=== PATIENT | female | born 1965 | race Caucasian/White ===

== ENCOUNTER 2023-06-07 11:13 | Outpatient (OUT) | payer MEDICAID, SELFPAY ==
--- NOTE | 2023-06-07 11:23 | MM_ITS ---
Patient Name: KASANDRA HARKINS MR#: [id number] : 1965 Exam Date: 06/07/2023 Ordering Doctor: DR RUTH IRAHETA . RADIOLOGY REPORT PROCEDURE: MM TOMOSYNTHESIS SCREENING BI COMPARISON: MG MAMM SCREEN ADAM W CAD, 03/07/2020. MG MAMM RT DIAG FU, 03/25/2020. INDICATIONS: screening Calculator Name NCI Breast Cancer Risk Assessment Tool 5 Year Breast Cancer Risk 1.00% Lifetime Breast Cancer Risk 6.30% Personal Breast Cancer No Personal Ovarian Cancer No Treatments None Family Cancers None LOCATION: [facility] BREAST COMPOSITION: Heterogeneously dense,which may obscure small masses. FINDINGS: DIAGNOSTIC CATEGORY 0--INCOMPLETE: NEED ADDITIONAL IMAGING EVALUATION. Scattered benign-appearing nodules are present. Scattered benign-appearing calcifications are present. Scattered benign-appearing lymph nodes are present. RIGHT BREAST: No significant suspicious finding. Large stable coarse calcification upper outer quadrant, anterior breast LEFT BREAST: 2 focal areas density in the upper outer quadrant, 1 upper-outer quadrant, anterior breast. A 2nd area upper-outer quadrant, mid breast, spot compression imaging and ultrasound follow-up is recommended. RECOMMENDATIONS: ADDITIONAL MAMMOGRAPHIC VIEWS REQUIRED: LEFT BREAST - spot compression ULTRASOUND: LEFT BREAST PLEASE NOTE: A NORMAL MAMMOGRAM DOES NOT EXCLUDE THE POSSIBILITY OF BREAST CANCER. A CLINICALLY SUSPICIOUS PALPABLE LUMP SHOULD BE BIOPSIED. Dictated by: Clarence Stack MD on 06/07/2023 at 11:57 Approved by: Clarence Stack MD on 06/07/2023 at 12:52
== END 2023-06-07 11:14 | disposition home or self-care (01) ==
LOC: MAMMO 11:18
PROVIDERS: PCP Family Medicine; Visit Provider Family Medicine
DX: Z12.31 Encounter for screening mammogram for malignant neoplasm of breast (principal); R92.8 Other abnormal and inconclusive findings on diagnostic imaging of breast
CPT/HCPCS: 77063; 77067

== ENCOUNTER 2023-06-17 13:09 | Outpatient (OUT) | payer MEDICAID, SELFPAY ==
--- NOTE | 2023-06-17 13:15 | MM_ITS ---
Patient Name: KASANDRA HARKINS MR#: [id number] : 1965 Exam Date: 06/17/2023 Ordering Doctor: DR Neto Villanueva . RADIOLOGY REPORT PROCEDURE: MM DIAGNOSTIC MAMMO UNILAT LT, 06/17/2023, 13:16 US BREAST LT LIMITED, 06/17/2023, 12:27 COMPARISON: MM TOMOSYNTHESIS SCREENING BI, 06/07/2023. MG MAMM RT DIAG FU, 03/25/2020. MG MAMM SCREEN ADAM W CAD, 03/07/2020. MG MAMM ADAM SCRN W CAD DIG, 07/17/2013. INDICATIONS: Abnormal Mammogram Calculator Name NCI Breast Cancer Risk Assessment Tool 5 Year Breast Cancer Risk 1.00% Lifetime Breast Cancer Risk 6.30% Personal Breast Cancer No Personal Ovarian Cancer No Treatments None Family Cancers None LOCATION: [facility] BREAST COMPOSITION: Heterogeneously dense,which may obscure small masses. FINDINGS: DIAGNOSTIC CATEGORY 4--SUSPICIOUS FOR MALIGNANCY. FINDING DOES NOT EXHIBIT CLASSIC FINDINGS OF BREAST CANCER: LEFT BREAST: No significant suspicious finding. Lobular masslike area at the 1 o'clock position 1.9 cm from the nipple, 0.6 x 0.6 x 0.5 cm. Heterogeneous, mixed density area at the 12 o'clock position, 2.3 cm from the nipple, 1.8 x 1.8 x 0.7 cm suspected represent residual area of dense fibroglandular tissue. Questionable 7 x 6 x 3 mm area at the 3 o'clock position, 7.3 cm from the nipple, although I suspect this represents normal fibroglandular tissue. Ultrasound-guided biopsy of the 1 o'clock lesion is recommended. Follow-up mammography and left breast ultrasound in 6 months is recommended to follow/document stability of the 12 o'clock and 3 o'clock areas. RECOMMENDATIONS: ULTRASOUND-GUIDED CORE BIOPSY: LEFT BREAST PLEASE NOTE: A NORMAL MAMMOGRAM DOES NOT EXCLUDE THE POSSIBILITY OF BREAST CANCER. A CLINICALLY SUSPICIOUS PALPABLE LUMP SHOULD BE BIOPSIED. Dictated by: Keanu Garner M.D. on 06/17/2023 at 14:08 Approved by: Keanu Garner M.D. on 06/17/2023 at 14:20
--- OUTSIDE RECORDS SUMMARY | 2023-06-17 13:18 | XMS_ITS | CCD ---
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 [Ratio] 13.5 % Normal 11.9-15.3 [facility] Comment on above: Performed By: #### C BC, LIPASE, BMP, HEPATIC #### [address] Hematocrit (Bld) [Volume fraction] 40.2 % Normal 34.0-46.4 [facility] Comment on above: Performed By: #### C BC, LIPASE, BMP, HEPATIC #### [address] Hemoglobin (Bld) [Mass/Vol] 13.0 g/dL Normal 11.8-15.4 [facility] Comment on above: Performed By: #### C BC, LIPASE, BMP, HEPATIC #### [address] Lymphocytes (Bld) [#/Vol] 2.5 10*3/uL Normal 1.00-4.8 [facility] Comment on above: Performed By: #### C BC, LIPASE, BMP, HEPATIC #### [facility] [address] Lymphocytes/100 WBC (Bld) 19.8 % Normal . [facility] Comment on above: Performed By: #### C BC, LIPASE, BMP, HEPATIC #### [facility] [address] MCH (RBC) [Entitic mass] 30.3 pg Normal 24.7-34.3 [facility] Comment on above: Performed By: #### C BC, LIPASE, BMP, HEPATIC #### [facility] [address] MCV (RBC) [Entitic vol] 93.9 fL Normal 80-100 [facility] Comment on above: Performed By: #### C BC, LIPASE, BMP, HEPATIC #### [address] Mean Corpuscular HGB Conc 32.3 g/dL Normal 32.0-35.0 [facility] Comment on above: Performed By: #### C BC, LIPASE, BMP, HEPATIC #### [address] Monocytes (Bld) [#/Vol] 1.0 10*3/uL High 0.0-0.8 [facility] Comment on above: Performed By: #### C BC, LIPASE, BMP, HEPATIC #### [place] [address] [place] Monocytes/100 WBC (Bld) 8.1 % Normal . [facility] Comment on above: Performed By: #### C BC, LIPASE, BMP, HEPATIC #### [facility] [address] [place] [address] [place] Neutrophils (Bld) [#/Vol] 8.8 10*3/uL High 1.8-7.7 [facility] Comment on above: Performed By: #### C BC, LIPASE, BMP, HEPATIC #### [address] Neutrophils/100 WBC (Bld) 70.7 % Normal . [facility] Comment on above: Performed By: #### C BC, LIPASE, BMP, HEPATIC #### [facility] [address] Nucleated RBC/100 WBC (Bld) [Ratio] 0.0 % Normal 0-0.5 [facility] Comment on above: Performed By: #### C BC, LIPASE, BMP, HEPATIC #### [facility] [address] Platelet mean volume (Bld) [Entitic vol] 9.2 fL Normal 6.3-10.7 [facility] Comment on above: Performed By: #### C BC, LIPASE, BMP, HEPATIC #### [address] Platelets (Bld) [#/Vol] 284 10*3/uL Normal 150-450 [facility] Comment on above: Performed By: #### C BC, LIPASE, BMP, HEPATIC #### [address] RBC (Bld) [#/Vol] 4.28 10*6/uL Normal 3.60-5.00 [facility] Comment on above: Performed By: #### C BC, LIPASE, BMP, HEPATIC #### [address] WBC (Bld) [#/Vol] 12.4 10*3/uL High 4.5-11.0 [facility] Comment on above: Performed By: #### C BC, LIPASE, BMP, HEPATIC #### [address] ECG 12 lead ECGon 03-01-2021 ECG 12 lead ECG [facility] [place] [address] [place] [address] Electrocardiograph Report Signed Patient: Kasandra Parkinson MR#: [id number] : 1965 Acct:[id number] Age/Sex: 56 / F ADM Date: 03/01/21 Loc: ER Room: Type: [facility] ER Attending Dr: Ordering Provider: Jose Antonio Black DO Date of Service: 03/01/21 ECG/ECG 12 lead ECG: trauma Copies to: Test Reason : Blood Pressure : 139/064 mmHG Vent. Rate : 077 BPM Atrial Rate : 077 BPM P-R Int : 154 ms QRS Dur : 134 ms QT Int : 432 ms P-R-T Axes : 052 -32 021 degrees QTc Int : 488 ms Normal sinus rhythm complete RBBB q waves III and AVF Confirmed by Jose Antonio Black DO ([id number]) on 03/02/2021 3:27:47 AM Referred By: Electronically Signed By:Jose Antonio Black DO Transcribed By: MUS Signed By Jose Antonio Black DO [id number] Normal [facility] Hepatic Panelon 03-01-2021 Albumin [Mass/Vol] 3.8 g/dL Normal 3.2-5.5 [facility] Comment on above: Performed By: #### C BC, LIPASE, BMP, HEPATIC #### [facility] [address] Albumin/Globulin [Mass ratio] 1.3 {ratio} Normal [facility] Comment on above: Performed By: #### C BC, LIPASE, BMP, HEPATIC #### [facility] [address] [id number] [facility] ALP [Catalytic activity/Vol] 87 U/L Normal 32-92 [facility] Comment on above: Performed By: #### C BC, LIPASE, BMP, HEPATIC #### [facility] [address] [phone] [place] ALT [Catalytic activity/Vol] 19 U/L Normal 10-60 [facility] Comment on above: Performed By: #### C BC, LIPASE, BMP, HEPATIC #### [facility] [address] [phone] [place] AST [Catalytic activity/Vol] 28 U/L Normal 10- [facility] Comment on above: Performed By: #### C BC, LIPASE, BMP, HEPATIC #### [facility] [address] [phone] [place] Bilirubin [Mass/Vol] 0.3 mg/dL Normal 0.3-1.2 [facility] Comment on above: Performed By: #### C BC, LIPASE, BMP, HEPATIC #### [facility] [address] Bilirubin,Indirect Not performed Normal [facility] Comment on above: Performed By: #### C BC, LIPASE, BMP, HEPATIC #### [facility] [address] Bilirubin.indirect [Mass/Vol] mg/dL Normal 0.0-0.4 [facility] Comment on above: Performed By: #### C BC, LIPASE, BMP, HEPATIC #### [facility] [address] Globulin (S) [Mass/Vol] 2.9 g/dL Normal [facility] Comment on above: Performed By: #### C BC, LIPASE, BMP, HEPATIC #### [facility] [address] Protein [Mass/Vol] 6.7 g/dL Normal 6.1-7.9 [facility] Comment on above: Performed By: #### C BC, LIPASE, BMP, HEPATIC #### [address] Lipaseon 03-01-2021 Lipase [Catalytic activity/Vol] 36.0 U/L Normal 22-51 [facility] Comment on above: Result Comment: PERF ORMED BY: [place] [address] PATHOLOGIST SENIOR PLANNING ANALYST CHERYLE BUI M.D. Performed By: #### C BC, LIPASE, BMP, HEPATIC #### [facility] [address] [place] [address] Jigna Ag Negativeon 03-01-20 Jigna Ag Negative Negative Normal Negative [facility] Comment on above: Result Comment: This is a duplicate Jigna SARS Antigen (YARON) result to be used for statistical tracking purpose only. PERFORMED BY: [place] [address] PATHOLOGIST SENIOR PLANNING ANALYST CHERYLE BUI M.D. Performed By: #### S OFIANEG, COVID 19 [facility], COVID-19 JGINA #### [facility] [address] [place] [address] [place] Type and Screenon 03-01-2021 ABO and Rh group Nom (Bld) Blood group O Rh(D) positive Normal [facility] Comment on above: Result Comment: PERF ORMED BY: [facility] [address] [place] [address] PATHOLOGIST SENIOR PLANNING ANALYST CHERYLE BUI M.D. Adrenocorticotropic Hormoneo n 09-17-2018 Adrenocorticotropic Hormone 17 pg/mL Normal 6-58 [facility] Comment on above: Result Comment: INTE RPRETIVE INFORMATION: Adrenocorticotropic Hormone Some types of synthetic ACTH are not detected by this assay. Access complete set of age- and/or gender-specific reference intervals for this test in the [facility] ([employer]). Performed by [facility], [address] [facility] [place] [id number] [email or web address], Rolando Graves MD - Lab. Director IGF-1 (Insulin-Like Growth F actor I)on 09-17-2018 IGF-1 (Insulin-Like Growth 1) 162 ng/mL Normal 53-234 [facility] IGF-1 Z SCORE CALC 0.8 Normal [facility] Comment on above: Result Comment: INTE RPRETIVE INFORMATION: IGF 1 Z-SCORE CALCULATION A Z score is the number of standard deviations a given result is above (positive score) or below (negative score) the age- and sex-adjusted population mean. Results that are within the IGF-1 reference interval will have a Z score between -2.0 and +2.0. Performed by [facility], [address] [facility] [place] [id number] [email or web address], Rolando Graves MD - Lab. Director Growth Hormoneon 09-16-2018 Growth Hormone 0.06 ng/mL Normal 0.05-8.00 [facility] Comment on above: Result Comment: Perf ormed by [facility], [address] [facility] [place] [id number] [email or web address], Rolando Graves MD - Lab. Director Basic Metabolic Panelon 05 Anion gap molar conc 13 mmol/L Normal 9-15 [facility] Comment on above: Performed By: #### B MP #### [facility] [address] [place] [address] Calcium mass conc 9.4 mg/dL Normal 8.5-9.9 [facility] Comment on above: Performed By: #### B MP #### [facility] [address] [place] [address] Chloride molar conc 100 mmol/L Normal 95-107 [facility] Comment on above: Performed By: #### B MP #### [facility] [address] [place] [address] CO2 molar conc 26 mmol/L Normal 20-31 [facility] Comment on above: Performed By: #### B MP #### [facility] [address] [place] [address] Creatinine mass conc 0.83 mg/dL Normal 0.50-0.90 [facility] Comment on above: Performed By: #### B MP #### [facility] [address] [place] [address] GFR/1.73 sq M predicted among blacks MDRD vol rate/area (S/P/Bld) mL/min/{1.73_m2} Normal >60 [facility] Comment on above: Result Comment: >60 mL/min/1.73m2 EGFR, calc. for ages 18 and older using the MDRD formula (not corrected for weight), is valid for stable renal function. Performed By: #### B MP #### [facility] [address] [place] [address] GFR/1.73 sq M.predicted MDRD vol rate/area mL/min/{1.73_m2} Normal >60 [facility] Comment on above: Result Comment: >60 mL/min/1.73m2 EGFR, calc. for ages 18 and older using the MDRD formula (not corrected for weight), is valid for stable renal function. Performed By: #### B MP #### [facility] [address] [place] [address] Glucose mass conc 93 mg/dL Normal 70-99 [facility] Comment on above: Performed By: #### B MP #### [facility] [address] [place] [address] Potassium molar conc 3.7 mmol/L Normal 3.4-4.9 [facility] Comment on above: Performed By: #### B MP #### [facility] [address] [place] [address] Sodium molar conc 139 mmol/L Normal 135-144 [facility] Comment on above: Performed By: #### B MP #### [facility] [address] [place] [address] Urea nitrogen mass conc 15 mg/dL Normal 6-20 [facility] Comment on above: Performed By: #### B MP #### [facility] [address] [place] [address] CBC With Platelet No Differe ntialon 09-14-2018 Erythrocyte distribution width Ratio (RBC) 13.9 % Normal 11.5-14.5 [facility] Comment on above: Performed By: #### C BCND #### [facility] [address] [place] [address] Hematocrit Volume Fraction (Bld) 39.0 % Normal 37.0-47.0 [facility] Comment on above: Performed By: #### C BCND #### [facility] [address] [place] [address] Hemoglobin mass conc (Bld) 12.9 g/dL Normal 12.0-16.0 [facility] Comment on above: Performed By: #### C BCND #### [facility] [address] [place] [address] MCH Entitic mass (RBC) 31.4 pg Critically high 27.0-31. 3 [facility] Comment on above: Performed By: #### C BCND #### [facility] [address] [place] [address] MCHC mass conc (RBC) 33.0 % Normal 33.0-37.0 [facility] Comment on above: Performed By: #### C BCND #### [facility] [address] [place] [address] MCV Entitic volume (RBC) 95.3 fL Normal 82.0-100.0 [facility] Comment on above: Performed By: #### C BCND #### [facility] [address] [place] [address] Platelets #/vol (Bld) 304 10*3/uL Normal 130-400 [facility] Comment on above: Performed By: #### C BCND #### [facility] [address] [place] [address] RBC #/vol (Bld) 4.09 10*6/uL Low 4.20-5.40 [facility] Comment on above: Performed By: #### C BCND #### [facility] [address] [place] [address] WBC #/vol (Bld) 8.1 10*3/uL Normal 4.8-10.8 [facility] Comment on above: Performed By: #### C BCND #### [facility] [address] [place] [address] Cortisolon 09-14-2018 Cortisol 9.9 ug/dL Normal [facility] Comment on above: Result Comment: Refe rence Ranges: AM Specimen 6.2-19.4 ug/dL PM Specimen 2.3-11.9 ug/dL Performed By: #### C ORT #### [facility] [address] [place] [address] Prolactinon 09-14-2018 Protein mass conc 40.2 ng/mL Normal [facility] Comment on above: Result Comment: Defa ult Normal Ranges Female Male Non: 4.8-23.3 4.0-15.2 Performed By: #### P ROOPA #### [facility] [address] [place] [address] TSH w/out Reflexon 9 Thyrotropin Qn 2.230 uIU/mL Normal 0.440-3.86 [facility] Comment on above: Performed By: #### T SH #### [facility] [address] [place] [address] Thyroxine Freeon 09-14-2018 Thyroxine Free 0.82 ng/dL Low 0.84-1.68 [facility] Comment on above: Performed By: #### F RT4 #### [facility] [address] [place] [address] Encounters Encounter Date Encounter Type Care Provider Facility Start: 08-23-2022 Encounter for genera l adult medical examination without abnormal findings DR RUTH IRAHETA . [facility] Start: 08-17-2022 End: 08-18-[address] RUTH IRAHETA . Facility: Start: 08-17-2022 End: 08-18-2022 Encounter for general adult medical examination without abnormal findings DR RUTH IRAHETA . Facility: Start: 08-10-2022 Letter encounter Ignacia Doshi MD Work Phone: [facility] Start: 05-12-2022 Letter encounter Ignacia Doshi MD Work Phone: [facility] Start: 03-18-2022 ambulatory IGNACIA DOSHI [facility] Start: 02-26-2022 Admission to [facility] surgery langdon Jose Keita PA-C Work Phone: [facility] Start: 02-17-2022 Letter encounter Ignacia Doshi MD Work Phone: [facility] Start: 02-17-2022 End: 02-18-2022 ambulatory UNKNOWN PROVIDER Facility:[facility] Start: 02-17-2022 End: 02-17-2022 Office outpatient visit 15 minutes Ignacia Doshi MD Work Phone: [facility] Comment on above: Right ankle pain, un specified chronicity (Primary Dx) Start: 02-17-2022 End: 02-17-2022 Subsequent hospital visit by physician Op Xray 2 [facility] Comment on above: Right ankle pain, un specified chronicity; Closed displaced comminuted fracture of shaft of left radius with routine healing, subsequent encounter Start: 09-02-2021 Letter encounter Ignacia Doshi MD Work Phone: [facility] Start: 09-02-2021 End: 09-03-2021 ambulatory IGNACIA DOSHI Facility:[facility] Start: 09-02-2021 End: 09-02-2021 Office outpatient visit 15 minutes Oneida Santos [employer] Work Phone: [facility] Comment on above: Closed displaced com minuted fracture of shaft of left radius with routine healing, subsequent encounter (Primary Dx) Start: 09-02-2021 End: 09-02-2021 Office outpatient visit 10 minutes Jose MENDOZA-Hojoki Work Phone: [facility] Comment on above: Right ankle pain, un specified chronicity (Primary Dx) Start: 09-01-2021 Letter encounter Ignacia Doshi MD Work Phone: [facility] Procedures Date Procedure Procedure Detail Performing Clinician Start: 02-17-2022 End: 02-17-2022 Radex forearm 2 views Oneida MENDOZA -Hojoki Work Phone: Start: 03-01-2021 Antibody screen Comment on above: Result Comment: PERF ORMED BY: [facility] [address] [place] [address] PATHOLOGIST SENIOR PLANNING ANALYST CHERYLE BUI M.D. Plan of Treatment Date Care Activity Detail Author Start: 03-01-2031 Tetanus vaccination [facility] Start: 07-26-2026 Cholesterol [Mass/volume] in Serum or Plasma Cholesterol [facility] Start: 07-07-2022 End: 07-07-2022 Patient encounter procedure 07/07/2022 Office Visit Orthopedics Ignacia Doshi MD [address] [place] [id number] [facility] Start: 06-26-2022 End: 06-26-2022 Admission to same day surgery center 06/26/2022 Surgery General Surgery Ignacia Doshi MD [address] [place] [id number] REMOVAL, HARDWARE, ANKLE [facility] Comment on above: REMOVAL, HARDWARE, A NKLE Start: 06-26-2022 End: 06-26-2022 REMOVAL, HARDWARE, ANKLE REMOVAL, HARDWARE, ANKLE Routine scheduled Type III open displaced trimalleolar fracture of right ankle, initial encounter 06/26/2022 1:25 PM EST [facility] Start: 06-26-2022 Subsequent hospital visit by physician 06/26/2022 Hospital Encounter General Surgery Ignacia Doshi MD [address] [place] [id number] [facility] Start: 06-12-2022 End: 06-12-2022 Patient encounter procedure 06/12/2022 Office Visit Presurgical Evaluation Zoey Corrales, BODY SHOP MANAGER-INTERIOR BLOCK WIRER [address] [place] [id number] [facility] Pre Surgical Evaluation Start: 03-10-2022 End: 03-10-2022 Patient encounter procedure [facility] Start: 03-05-2022 End: 09-02-2022 Radex forearm 2 views XR FOREARM LEFT 2 VIEWS Imaging After office visit Closed displaced comminuted fracture of shaft of left radius with routine healing, subsequent encounter Expected: 03/05/2022 (Approximate), Expires: 09/02/2022 [employer] Work Phone: Comment on above: Expected: 03/05/2022 (Approximate), Expires: 09/02/2022 Start: 03-03-2022 Basic metabolic 2000 panel - Serum or Plasma Basic Metabolic Panel [facility] Start: 01-31-2022 Influenza vaccination Influenza Vacc ine (#1) [facility] Start: 12-02-2021 End: 12-02-2021 Patient encounter procedure 12/02/2021 Office Visit Orthopedics Ignacia Doshi MD [address] [place], [place] [id number] [facility] Start: 09-02-2021 End: 09-02-2021 Patient encounter procedure [facility] Comment on above: Right ankle pain, un specified chronicity (Primary Dx) Start: 02-04-2016 Measurement of occul t blood in single stool specimen [facility] Start: 02-04-2016 Screening for malignant neoplasm of breast [facility] Start: 02-04-2016 Screening for malignant neoplasm of colon CRC Screening [facility] Start: 02-04-2016 Shingles (RZV) Vacci ne (1 of 2) Shingles (RZV) Vaccine (1 of 2) [facility] Start: 2011 Cholesterol [Mass/volume] in Serum or Plasma Cholesterol [facility] Start: 2011 Screening for malignant neoplasm of colon [facility] Start: 2006 Screening for malignant neoplasm of breast [facility]ammography [facility] Start: 1987 Screening for malignant neoplasm of cervix Pap Smear [facility] Start: 02-04-1984 Hepatitis C screening Hepatitis C An tibody [facility] Start: 1981 HIV screening HIV Test [facility] Start: 1971 COVID-19 Vaccine (1) COVID-19 Vaccin e (1) [facility] Start: 1966 COVID-19 Vaccine (#1) COVID-19 Vacci ne (#1) [facility] Start: 1966 Screening for malignant neoplasm of colon Colonoscopy [facility] REMOVAL, HARDWARE, ANKLE REMOVAL, HARDWARE, ANKLE Routine scheduled Type III open displaced trimalleolar fracture of right ankle, initial encounter [facility] Immunizations Immunization Date Immunization Notes Care Provider Fa cility 03-01-2021 tetanus toxoid, redu jennifer diphtheria toxoid, and acellular pertussis vaccine, adsorbed Ignacia Doshi MD Work Phone: [facility] 04-08-2012 tetanus toxoid, redu jennifer diphtheria toxoid, and acellular pertussis vaccine, adsorbed Ignacia Doshi MD Work Phone: [facility] 04-06-2012 hepatitis B vaccine, adult dosage Ignacia Doshi MD Work Phone: [facility] Payers Date Payer Category Payer Medicaid [id number] 2022 Medicaid [id number] 2020 Medicaid [id number] 2020 Medicaid [id number] 1965 Unknown [id number] 2.16. [id number] 1965 Unknown [id number] 2.16. [id number] 1965 Unknown [id number] 2.16. [id number] 1966 Unknown [id number] 2.16. [id number] 1966 Unknown [id number] 2.16. [id number] 1965 Unknown [id number] 2.16. [id number] 1966 Unknown [id number] 2.16. [id number] 1965 Unknown [id number] 2.16. [id number] 1965 Unknown [id number] 2.16.84 [id number] Social History Date Type Detail Facility Start: 03-02-2021 Tobacco smoking status [facility] Ex-smoke r [facility] End: 03-02-2009 History of tobacco use [facility] End: 03-02-2009 History of tobacco use [facility] Start: 03-02-2021 Cigarettes smoked cu rrent (pack per day) - Reported 0.25 [facility] Start: 03-02-2021 Tobacco use and exposure Forme r smokeless tobacco user [facility] Start: 1965 Sex Assigned At Not on file M [facility] Medical Equipment Procedure Code Equipment Code Equipment Origin al Text Equipment Identifier Dates Plate 3.5mm 8hol e 97mm Ea1 241.381 - [id number] Start: 03-02-2021 Screw 3.5 X 45mm Self-Tapping Ea1 204.845 - [id number] Start: 03-02-2021 History of Present illness Narrative 02-17-2022 Ignacia Dsohi MD - 02/17/2022 2:33 PM Dasia Russo RN - 02/17/2022 10:00 AM EDT Note Date & Type Note Facility 02-17-2022 History of Presen t illness Narrative Images from the original note were not included. [facility] Orthopaedic Trauma / Adult Reconstruction Follow up visit Kasandra Parkinson Date: 02/17/22 Post-op: 03/02/2021 - Irrigation And Debridement; Ankle - Right, Reduction, Open, Ankle, and Reduction, Open, Radius Interval History: Doing well overall. Bothered by prominence over lateral ankle and medial malleolus Pain scale: Pain Score: 5/10 Tobacco history: Social History Tobacco Use Smoking Status Former Packs/day: 0.25 Years: 1.00 Pack years: 0.25 Types: Cigarettes Quit date: 03/02/2009 Years since quittin.9 Smokeless Tobacco Former Estimated body mass index is 29.23 kg/m as calculated from the following: Height as of 03/02/21: 5' 3 (1.6 m). Weight as of 03/02/21: 165 lb (74.8 kg). Past medical history, medications, allergies, surgical history and review of systems are reviewed and otherwise unchanged when compared to last visit: Most recent visit in Orthopedics was on 02/17/2022 with Ignacia Doshi MD Examination: Constitutional: Oriented to person, place, and time. Appears well-developed and well-nourished. Head: Normocephalic and atraumatic. Eyes: Pupils are equal, round, and reactive to light. Cardiovascular: Intact distal pulses. Pulmonary/Chest/Breast: Effort normal. No respiratory distress. Neurological: Alert and oriented to person, place, and time. Skin: Skin is warm and dry. Psychiatric: normal mood and affect. Behavior is normal. Musculoskeletal: RLE Deformity: prominent syndesmotic screw Swelling: none Skin changes: none Wounds: healed lateral wound, medial traumatic wound Perfusion: warm, perfused Tenderness: minimal Range of motion: 0-40 Strength: full Sensibility: intact all n Provacative maneuvers: none Personal Interpretation of Diagnostic studies: Study: XR R ankle Date: 02/17/22 Results: healed bimalleolar ankle fx with lucency around syndesmotic screw. Minimal backout of syndesmotic screw. Impression: healed R ankle fx with slight backout of syndesmotic screw In Office Procedures Performed: none Plan: HW removal of only syndesmotic screw and medial malleolar screw at the patient's convenience. Follow up date: tbd Follow up imaging: none Ignacia Doshi MD [facility] Department of Orthopaedic Surgery - Trauma / Adult Reconstruction Patient was identified by name and date of . Dasia Gonzalez RN Patient at risk for falls:No Falls Risk protocol implemented: No documented in this encounter [facility] History of Present illness Narrative 09-02-2021 Jose Keita PA-C - 09/02/2021 6:29 PM Dasia Russo RN - 09/02/2021 10:48 AM EDT Note Date & Type Note Facility 09-02-2021 History of Presen t illness Narrative [facility] Orthopaedic Trauma/Adult Reconstruction 09/02/21 Orthopaedic Surgery Clinic Note HPI: Kasandra Parkinson ([id number]) is a 56 year old female who presents for a visit for follow up s/p ORIF right open bimalleolar ankle fracture. Overall she has been doing well ambulating in a regular shoe. She has some newer onset of hardware pain over the syndesmotic screw that is painful when shoe wear rubs. There is also area of swelling over lateral lower leg at mid/distal fibula. ROS: All other pertinent ROS negative. Medications: Current Outpatient Medications on File Prior to Visit Medication Sig Dispense Refill docusate sodium (COLACE) 100 MG capsule Take 1 Capsule by mouth 2 times daily as needed for Constipation for up to 7 days. 14 Capsule 0 enoxaparin (LOVENOX) 40 mg/0.4 mL injection Inject 0.4 mL under the skin 2 times daily. 33.6 mL 0 senna (SENOKOT) 8.6 MG tablet Take 1 Tablet by mouth daily as needed for Constipation. (Patient not taking: Reported on 05/27/2021) 14 Tablet 0 irbesartan (AVAPRO) 150 MG tablet Take 150 mg by mouth daily. hydrALAZINE (APRESOLINE) 50 MG tablet Take 50 mg by mouth 2 times daily. citalopram (CeleXA) 40 MG tablet Take 40 mg by mouth daily. simvastatin (ZOCOR) 20 MG tablet Take 20 mg by mouth every evening. levothyroxine (SYNTHROID) 25 MCG tablet Take 25 mcg by mouth daily. No current facility-administered medications on file prior to visit. Allergies: Allergies Allergen Reactions Latex Morphine Liquid Past Medical History: Past Medical History: Diagnosis Date Anxiety 2009 Chronic pain artritis, headaches Hypertension Past Surgical History: Past Surgical History: Procedure Laterality Date CHOLECYSTECTOMY IRRIGATION AND DEBRIDEMENT Right 03/02/2021 Procedure: IRRIGATION AND DEBRIDEMENT; ANKLE; Surgeon: Ignacia Doshi MD; Location: PERIOPERATIVE SERVICES; Service: Orthopaedics REDUCTION, OPEN, ANKLE 03/02/2021 Procedure: REDUCTION, OPEN, ANKLE; Surgeon: Ignacia Doshi MD; Location: PERIOPERATIVE SERVICES; Service: Orthopaedics REDUCTION, OPEN, RADIUS 03/02/2021 Procedure: REDUCTION, OPEN, RADIUS; Surgeon: Reid Barr MD; Location: PERIOPERATIVE SERVICES; Service: Hand TOTAL ABDOMINAL HYSTERECTOMY W/WO REMOVAL TUBE(S)/OVARY(S) Social History: Tobacco: Quit Packs: .25 Years: 1 Other types: Cigarettes Quit Date: 03/02/2009 Physical Exam: General: Oriented to person, place, and time. Appears well-developed and well-nourished. Neurological: CN II-XII grossly intact. Head: Normocephalic and atraumatic. Eyes: Pupils are equal, round, and reactive to light. Cardiovascular: Intact distal pulses. Pulmonary: Effort normal. No respiratory distress. Skin: Skin is warm dry, intact. Psychiatric: normal mood and affect. Behavior is normal. Musculoskeletal: RLE Deformity: none Swelling: mild, swelling at midshaft fibula which does not correlate with fracture location Wounds: healed Perfusion: warm, well perfused, distal pulses palpable Tenderness: lateral ankle over distal fibula, some prominence of syndesmotic screw Range of Motion: df 0, pf 40 DF/PF/EHL: 5/5 Sensation: Intact to light touch Imaging: Reviewed with the patient. Fracture appears healed. Slight loosening/backing out of syndesmotic screw In office procedures performed: none Assessment/Plan: 1. (M25.571) Right ankle pain, unspecified chronicity The natural history and treatment options (surgical and non-surgical) were discussed including risks, benefits, alternatives and prognosis and all questions were answered. The following plan was agreed upon: She will continue to observe for this hardware pain/prominence. I explained DOMINIC of this screw if it is persistently painful or causes skin compromise which would necessitate more emergent follow up. Follow-up: 3 months, or sooner if needed, will consider removal of screw based on symptoms. Imaging: right ankle Jose Keita PA-C Patient was identified by name and date of . Dasia Gonzalez RN Patient at risk for falls:No Falls Risk protocol implemented: No documented in this encounter [facility] History of Present illness Narrative 09-02-2021 Oneida Santos PA-C - 09/02/2021 1:26 PM Renetta Milligan RN - 09/02/2021 11:20 AM EDT Note Date & Type Note Facility 09-02-2021 History of Presen t illness Narrative Images from the original note were not included. Post Operative Visit Date of Surgery: 03/02/2021 Surgery(s) performed: 1. Left radial shaft ORIF 2. Closed reduction of distal radial ulnar joint Surgeon: Reid Barr M.D. Pain (0-10): Pain Score: 0/10 Other Complaints: Patient continues to improve. She has been using her wrist as tolerated. Minimal pain. She sometimes feels ulnar sided snapping but infrequently. Wound: Clean and dry without signs or symptoms of infection. Well healed. Edema: None. Motion: Wrist ROM improved. Radiograph Findings: Well healed radial shaft fracture with no change in alignment or signs of hardware failure. Plan: - X-ray images reviewed with patient. - Continue OT per protocol. - WBAT. - Scar massage encouraged. - Tylenol if needed for pain. X-rays on follow up: Yes - Ordered today. Follow up: 6 months. Diagnosis and treatment plan discussed with the patient. The patient stated understanding and agreement. Oneida Santos PA-C 09/02/21 1:26 PM Patient at risk for falls:No Falls Risk protocol implemented: No documented in this encounter [facility] Evaluation note Note Date & Type Note Facility Evaluation note Diagnosis Closed displaced comminuted fracture of shaft of left radius with routine healing, subsequent encounter- Primary documented in this encounter [facility] Evaluation note Note Date & Type Note Facility Evaluation note Diagnosis Right ankle pain, unspecified chronicity- Primary Right ankle pain, unspecified chronicity Closed displaced comminuted fracture of shaft of left radius with routine healing, subsequent encounter documented in this encounter [facility] Evaluation note Note Date & Type Note Facility Evaluation note Diagnosis Right ankle pain, unspecified chronicity- Primary Right ankle pain, unspecified chronicity Closed displaced comminuted fracture of shaft of left radius with routine healing, subsequent encounter documented in this encounter [facility] Evaluation note Note Date & Type Note Facility Evaluation note Diagnosis Right ankle pain, unspecified chronicity Closed displaced comminuted fracture of shaft of left radius with routine healing, subsequent encounter documented in this encounter [facility] Evaluation note Note Date & Type Note Facility Evaluation note Diagnosis Type III open displaced trimalleolar fracture of right ankle, initial encounter- Primary documented in this encounter [facility] Summary Purpose Family History No Family History Records FoundNo Family History Records FoundNo Family History Records FoundNo Family History Records FoundNo Family History Records Found Advance Directives No Advanced Directives Records FoundLatest Code Status on File Code Status Date Activated Date Inactivated Comments Full Code 03/02/2021 6:58 AM 03/04/2021 6:50 PM Documentation of decision pr ocess for this code status: Discussed with patient or surrogate. Thi s is the code status chosen by the patient/surrogate. Latest Code Status on File Code Status Date Activated Date Inactivated Comments Full Code 03/02/2021 6:58 AM 03/04/2021 6:50 PM Latest Code Status on File Code Status Date Activated Date Inactivated Comments Full Code 03/02/2021 6:58 AM 03/04/2021 6:50 PM Question Answer Comments Documentation of decision process for this code status: Discussed with patient or surrogate. This is the code status chosen by the patient/surrogate. Reason for Referral Specialty Diagnoses / Procedures Referred By Contac t Referred To Contact Radiology Diagnoses Closed displaced comminuted fracture of shaft of left radius with routine healing, subsequent encounter Procedures XR FOREARM LEFT 2 VIEWS Oneida Santos PA-C [address] [place] [address] [facility] [address] [place] [address] [place] [address] Referral ID Status Reason Start Date Expiration Date V isits Requested Visits Authorized [id number] Authorized 03/05/2022 09/02/2022 1 1 Specialty Diagnoses / Procedures Referred By Contac t Referred To Contact Radiology Diagnoses Right ankle pain, unspecified chronicity Procedures XR ANKLE RIGHT 3 VIEWS Ignacia Doshi MD [address] [place] [address] [facility] [address] [place] [address] [place] [address] Referral ID Status Reason Start Date Expiration Date Visits Re quested Visits Authorized [id number] Closed 09/02/2021 08/26/2022 1 1 Referral ID Status Reason Start Date Expiration Date Visits Re quested Visits Authorized [id number] Closed 02/17/2022 02/17/2023 1 1 Referral ID Status Reason Start Date Expiration Date Visits Re quested Visits Authorized [id number] Closed 03/05/2022 09/02/2022 1 1 Additional Source Comments INFORMATION SOURCE (unrecogn ized section and content) DATE CREATED AUTHOR 09/24/2018 [facility] DATE CREATED AUTHOR AUTHOR'S ORGANIZ ATION 05/27/2021 [facility] DATE CREATED AUTHOR AUTHOR'S ORGANIZ ATION 06/18/2022 [facility] DATE CREATED AUTHOR AUTHOR'S ORGANIZ ATION 08/23/2022 [facility] DATE CREATED AUTHOR AUTHOR'S ORGANIZ ATION 02/27/2023 Clement Montague [facility] Care Teams (unrecognized sec tion and content) [employer] Supervisor Relationship Specialty Start Date End Date Ignacia Doshi MD [address] [place] [address] Physician Orthopaedic Surgery 05/03/21 Nosdanika, Jose De Jesusi, OTR/L [address] [place] [address] [place] [address] Occupational Therapist Occupational Therapy 05/03/21 [employer] Supervisor Relationship Specialty Start Date End Date Ignacia Doshi MD [address] [place] [address] Physician Orthopaedic Surgery 05/03/21 NosJose De Jesus garnicai, OTR/L [address] [place] [address] [place] [address] Occupational Therapist Occupational Therapy 05/03/21 [employer] Supervisor Relationship Specialty Start Date End Date Ignacia Doshi MD [address] [place] [address] Physician Orthopaedic Surgery 05/03/21 NosJose De Jesus garnicai, OTR/L [address] [place] [address] [place] [address] Occupational Therapist Occupational Therapy 05/03/21 Cupola Melting Supervisor Relationship Specialty Start Date End Date Ignacia Doshi MD [address] [place] [address] Physician Orthopaedic Surgery 05/03/21 Nosin, Cori, OTR/L [address] [place] [address] [place] [address] Occupational Therapist Occupational Therapy 05/03/21 Cupola Melting Supervisor Relationship Specialty Start Date End Date Ignacia Doshi MD [address] [place] [address] Physician Orthopaedic Surgery 05/03/21 Nosin, Cori, OTR/L [address] [place] [address] [place] [id number] Occupational Therapist Occupational Therapy 05/03/21 Cupola Melting Supervisor Relationship Specialty Start Date End Date Ignacia Doshi MD [address] [place] [address] Physician Orthopaedic Surgery 05/03/21 Nosin, Cori, OTR/L [address] [place] [address] [place] [address] Occupational Therapist Occupational Therapy 05/03/21 Cupola Melting Supervisor Relationship Specialty Start Date End Date Ignacia Doshi MD [address] [place], [place] [id number] Physician Orthopaedic Surgery 05/03/21 Nosin, Cori, OTR/L [address] [place] [address] [place] [address] Occupational Therapist Occupational Therapy 05/03/21 Reason for Visit (unrecogniz ed section and content) Reason Comments Monitoring/follow-up Reason Comments Post Op Check Specialty Diagnoses / Procedures Referred By Contac t Referred To Contact Radiology Diagnoses Right ankle pain, unspecified chronicity Procedures XR ANKLE RIGHT 3 VIEWS Ignacia Doshi MD [address] [place], [place] [id number] S DIAGNOSTIC RADIOLOGY [address] [place] [address] [place] [address] Referral ID Status Reason Start Date Expiration Date Visits Re quested Visits Authorized [id number] Closed 02/17/2022 02/17/2023 1 1 FOR RECORDS PERTAINING TO PATIENTS WHO ARE OR HAVE BEEN ENROLLED IN A CHEMICAL DEPENDENCY/SUBSTANCEABUSE PROGRAM, SOME INFORMATION MAY BE OMITTED. This clinical summary was aggregated from multiple sources. Caution should be exercised in using it in the provision of clinical care. This summary normalizes information from multiple sources, and as a consequence, information in this document may materially change the coding, format and clinical context of patient data. In addition, data may be omitted in some cases. CLINICAL DECISIONS SHOULD BE BASED ON THE PRIMARY CLINICAL RECORDS. [employer] [facility]. provides no warranty or guarantee of the accuracy or completeness of information in this document.
== END 2023-06-17 13:10 | disposition home or self-care (01) ==
LOC: MAMMO 13:09
PROVIDERS: PCP Family Medicine; Visit Provider Family Medicine
DX: R92.8 Other abnormal and inconclusive findings on diagnostic imaging of breast (principal)
CPT/HCPCS: 76642; 77065

== ENCOUNTER 2023-06-24 09:51 | Day surgery (SDC) | payer MEDICAID, SELFPAY ==
--- NOTE | 2023-06-24 09:58 | US_ITS ---
The [address] [address] Patient Name: KASANDRA HARKINS MRN: [id number] date: 1965 Sex: F Assigned Patient Location: US Current Patient Location: [place] Accession/Order Number: [id number] Exam Date: 06/24/2023 10:30 Report Date: 06/24/2023 11:39 At the request of: RUTH IRAHETA Procedure: US breast vac bx w/ clip LT EXAM: US breast vac bx w/ clip LT HISTORY: mass ; left breast 1:00 lesion COMPARISON: Ultrasound breast left 06/17/2023 TECHNIQUE: After obtaining informed consent, ultrasound-guided biopsy was performed in the usual sterile manner. The location of the biopsy was then marked as indicated below. FINDINGS: Specimen #, Location: 3 core samples; 1:00 mixed density lobular 9 mm lesion. Biopsy Needle: 13 gauge vacuum core biopsy needle. Marker(s): A single metallic marker was placed in the appropriate targeted location. Medication: Buffered 1% Lidocaine with epinephrine administered locally. Complications: None. Pathology: Pending. US/US breast vac bx w/ clip LT IMPRESSION: 1. Uneventful ultrasound-guided breast biopsy. 2. Pathology results are pending. An addendum to this report will be provided after pathology results are available. Electronically authenticated by: KATE RANDHAWA Date: 06/24/2023 11:39
--- NOTE | 2023-06-24 09:59 | MM_ITS ---
Patient Name: KASANDRA HARKINS MR#: [id number] : 1965 Exam Date: 06/24/2023 Ordering Doctor: DR Neto Villanueva . This report includes an Addendum and supersedes previous reports for this exam. RADIOLOGY REPORT PROCEDURE: MM POST BIOPSY LT COMPARISON: US BREAST VAC BX W/ CLIP LT, 06/24/2023. MM DIAGNOSTIC MAMMO UNILAT LT, 06/17/2023. MM TOMOSYNTHESIS SCREENING BI, 06/07/2023. MG MAMM RT DIAG FU, 03/25/2020. MG MAMM SCREEN ADAM W CAD, 03/07/2020. INDICATIONS: mass BREAST COMPOSITION: Heterogeneously dense,which may obscure small masses. FINDINGS: BIOPSY MARKER: A metallic marker has been placed in the targeted location within the upper-outer quadrant of the left breast. BREAST FINDINGS: Expected post biopsy findings. RECOMMENDATIONS: Dictated by: Keanu Garner M.D. on 06/24/2023 at 15:47 Approved by: Keanu Garner M.D. on 06/24/2023 at 15:49 ADDENDUM: FINDINGS: DIAGNOSTIC CATEGORY 3--PROBABLY BENIGN FINDING. THE FOLLOWING FINDING(S) HAS A HIGH PROBABILITY OF A BENIGN ETIOLOGY: RECOMMENDATIONS: SHORT TERM FOLLOW-UP DIAGNOSTIC MAMMOGRAM LEFT BREAST IN 6 MONTHS. Dictated by: Keanu Garner M.D. on 07/09/2023 at 08:36 Approved by: Keanu Garner M.D. on 07/09/2023 at 08:37
[2023-06-24 10:05] VITALS: BP 164/95; PULSE 67; O2SAT 96
--- OUTSIDE RECORDS SUMMARY | 2023-06-24 10:11 | XMS_ITS | CCD ---
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 03-01-2021 Albumin [Mass/Vol] 3.8 g/dL Normal 3.2-5.5 [facility] Comment on above: Performed By: #### C BC, LIPASE, BMP, HEPATIC #### [facility] [address] Albumin/Globulin [Mass ratio] 1.3 {ratio} Normal [facility] Comment on above: Performed By: #### C BC, LIPASE, BMP, HEPATIC #### [facility] [address] [id number] [facility] ALP [Catalytic activity/Vol] 87 U/L Normal 32-92 [facility] Comment on above: Performed By: #### C BC, LIPASE, BMP, HEPATIC #### [facility] [address] [id number] [place] ALT [Catalytic activity/Vol] 19 U/L Normal 10-60 [facility] Comment on above: Performed By: #### C BC, LIPASE, BMP, HEPATIC #### [facility] [address] [phone] [place] AST [Catalytic activity/Vol] 28 U/L Normal 10- [facility] Comment on above: Performed By: #### C BC, LIPASE, BMP, HEPATIC #### [facility] [address] [phone] [place] Bilirubin [Mass/Vol] 0.3 mg/dL Normal 0.3-1.2 [facility] Comment on above: Performed By: #### C BC, LIPASE, BMP, HEPATIC #### [facility] [address] Bilirubin,Indirect Not performed Normal [facility] Comment on above: Performed By: #### C BC, LIPASE, BMP, HEPATIC #### [facility] [address] Bilirubin.indirect [Mass/Vol] mg/dL Normal 0.0-0.4 [facility] Comment on above: Performed By: #### C BC, LIPASE, BMP, HEPATIC #### [facility] [address] Globulin (S) [Mass/Vol] 2.9 g/dL Normal [facility] Comment on above: Performed By: #### C BC, LIPASE, BMP, HEPATIC #### [facility] [address] Protein [Mass/Vol] 6.7 g/dL Normal 6.1-7.9 [facility] Comment on above: Performed By: #### C BC, LIPASE, BMP, HEPATIC #### [address] Lipaseon 03-01-2021 Lipase [Catalytic activity/Vol] 36.0 U/L Normal 22-51 [facility] Comment on above: Result Comment: PERF ORMED BY: [place] [address] PATHOLOGIST APARTMENT LOCATOR CHERYLE BUI M.D. Performed By: #### C BC, LIPASE, BMP, HEPATIC #### [facility] [address] [place] [address] Jigna Ag Negativeon 03-01-20 Jigna Ag Negative Negative Normal Negative [facility] Comment on above: Result Comment: This is a duplicate Jigna SARS Antigen (YARON) result to be used for statistical tracking purpose only. PERFORMED BY: [place] [address] PATHOLOGIST APARTMENT LOCATOR CHERYLE BUI M.D. Performed By: #### S OFIANEG, COVID 19 [facility], COVID-19 JIGNA #### [facility] [address] [place] [address] [place] Type and Screenon 03-01-2021 ABO and Rh group Nom (Bld) Blood group O Rh(D) positive Normal [facility] Comment on above: Result Comment: PERF ORMED BY: [facility] [address] [facility] [address] PATHOLOGIST APARTMENT LOCATOR CHERYLE BUI M.D. Adrenocorticotropic Hormoneo n 09-17-2018 Adrenocorticotropic Hormone 17 pg/mL Normal 6-58 [facility] Comment on above: Result Comment: INTE RPRETIVE INFORMATION: Adrenocorticotropic Hormone Some types of synthetic ACTH are not detected by this assay. Access complete set of age- and/or gender-specific reference intervals for this test in the [employer] [facility] Test Directory ([email or web address]). Performed by [facility], [address] [employer] [facility],[place] [id number] [email or web address], Rolando Graves MD - Lab. Director IGF-1 (Insulin-Like Growth F actor I)on 09-17-2018 IGF-1 (Insulin-Like Growth 1) 162 ng/mL Normal 53-234 [facility] IGF-1 Z SCORE CALC 0.8 Normal [facility] Comment on above: Result Comment: INTE RPRETIVE INFORMATION: IGF 1 Z-SCORE CALCULATION A Z score is the number of standard deviations a given result is above (positive score) or below (negative score) the age- and sex-adjusted population mean. Results that are within the IGF-1 reference interval will have a Z score between -2.0 and +2.0. Performed by [facility], [address] [facility],[place] [id number] [email or web address], Rolando Graves MD - Lab. Director Growth Hormoneon 09-16-2018 Growth Hormone 0.06 ng/mL Normal 0.05-8.00 [facility] Comment on above: Result Comment: Perf ormed by [facility], [address] [facility] [place] [id number] [email or web address], Rolando Graves MD - Lab. Director Basic Metabolic Panelon 05 Anion gap molar conc 13 mmol/L Normal 9-15 [facility] Comment on above: Performed By: #### B MP #### [facility] [address] [place] [address] Calcium mass conc 9.4 mg/dL Normal 8.5-9.9 [facility] Comment on above: Performed By: #### B MP #### [facility] [address] [place] [address] Chloride molar conc 100 mmol/L Normal 95-107 [facility] Comment on above: Performed By: #### B MP #### [facility] [address] [place] [address] CO2 molar conc 26 mmol/L Normal 20-31 [facility] Comment on above: Performed By: #### B MP #### [facility] [address] [place] [address] Creatinine mass conc 0.83 mg/dL Normal 0.50-0.90 [facility] Comment on above: Performed By: #### B MP #### [facility] [address] [place] [address] GFR/1.73 sq M predicted among blacks MDRD vol rate/area (S/P/Bld) mL/min/{1.73_m2} Normal >60 [facility] Comment on above: Result Comment: >60 mL/min/1.73m2 EGFR, calc. for ages 18 and older using the MDRD formula (not corrected for weight), is valid for stable renal function. Performed By: #### B MP #### [facility] [address] [place] [address] GFR/1.73 sq M.predicted MDRD vol rate/area mL/min/{1.73_m2} Normal >60 [facility] Comment on above: Result Comment: >60 mL/min/1.73m2 EGFR, calc. for ages 18 and older using the MDRD formula (not corrected for weight), is valid for stable renal function. Performed By: #### B MP #### [facility] [address] [place] [address] Glucose mass conc 93 mg/dL Normal 70-99 [facility] Comment on above: Performed By: #### B MP #### [facility] [address] [place] [address] Potassium molar conc 3.7 mmol/L Normal 3.4-4.9 [facility] Comment on above: Performed By: #### B MP #### [facility] [address] [place] [address] Sodium molar conc 139 mmol/L Normal 135-144 [facility] Comment on above: Performed By: #### B MP #### [facility] [address] [place] [address] Urea nitrogen mass conc 15 mg/dL Normal 6-20 [facility] Comment on above: Performed By: #### B MP #### [facility] [address] [place] [address] CBC With Platelet No Differe ntialon 09-14-2018 Erythrocyte distribution width Ratio (RBC) 13.9 % Normal 11.5-14.5 [facility] Comment on above: Performed By: #### C BCND #### [facility] [address] [place] [address] Hematocrit Volume Fraction (Bld) 39.0 % Normal 37.0-47.0 [facility] Comment on above: Performed By: #### C BCND #### [facility] [address] [place] [address] Hemoglobin mass conc (Bld) 12.9 g/dL Normal 12.0-16.0 [facility] Comment on above: Performed By: #### C BCND #### [facility] [address] [place] [address] MCH Entitic mass (RBC) 31.4 pg Critically high 27.0-31. 3 [facility] Comment on above: Performed By: #### C BCND #### [facility] [address] [place] [address] MCHC mass conc (RBC) 33.0 % Normal 33.0-37.0 [facility] Comment on above: Performed By: #### C BCND #### [facility] [address] [place] [address] MCV Entitic volume (RBC) 95.3 fL Normal 82.0-100.0 [facility] Comment on above: Performed By: #### C BCND #### [facility] [address] [place] [address] Platelets #/vol (Bld) 304 10*3/uL Normal 130-400 [facility] Comment on above: Performed By: #### C BCND #### [facility] [address] [place] [address] RBC #/vol (Bld) 4.09 10*6/uL Low 4.20-5.40 [facility] Comment on above: Performed By: #### C BCND #### [facility] [address] [place] [address] WBC #/vol (Bld) 8.1 10*3/uL Normal 4.8-10.8 [facility] Comment on above: Performed By: #### C BCND #### [facility] [address] [place] [address] Cortisolon 09-14-2018 Cortisol 9.9 ug/dL Normal [facility] Comment on above: Result Comment: Refe rence Ranges: AM Specimen 6.2-19.4 ug/dL PM Specimen 2.3-11.9 ug/dL Performed By: #### C ORT #### [facility] [address] [place] [address] Prolactinon 09-14-2018 Protein mass conc 40.2 ng/mL Normal [facility] Comment on above: Result Comment: Defa ult Normal Ranges Female Male Non: 4.8-23.3 4.0-15.2 Performed By: #### P ROOPA #### [facility] [address] [place] [address] TSH w/out Reflexon 9 Thyrotropin Qn 2.230 uIU/mL Normal 0.440-3.86 [facility] Comment on above: Performed By: #### T SH #### [facility] [address] [place] [address] Thyroxine Freeon 09-14-2018 Thyroxine Free 0.82 ng/dL Low 0.84-1.68 [facility] Comment on above: Performed By: #### F RT4 #### [facility] [address] [place] [address] Encounters Encounter Date Encounter Type Care Provider Facility Start: 08-23-2022 Encounter for genera l adult medical examination without abnormal findings DR RUTH IRAHETA . [facility] Start: 08-17-2022 End: 08-18-[address] RUTH IRAHETA . Facility: Start: 08-17-2022 End: 08-18-2022 Encounter for general adult medical examination without abnormal findings DR RUTH IRAHETA . Facility: Start: 08-10-2022 Letter encounter Ignacia Doshi MD Work Phone: [facility] Start: 05-12-2022 Letter encounter Ignacia Doshi MD Work Phone: [facility] Start: 03-18-2022 ambulatory IGNACIA DOSHI [facility] Start: 02-26-2022 Admission to [facility] surgery obion Jose Keita PA-C Work Phone: [facility] Start: 02-17-2022 Letter encounter Ignacia Doshi MD Work Phone: [facility] Start: 02-17-2022 End: 02-18-2022 ambulatory UNKNOWN PROVIDER Facility:[facility] Start: 02-17-2022 End: 02-17-2022 Office outpatient visit 15 minutes Ignacia Doshi MD Work Phone: [facility] Comment on above: Right ankle pain, un specified chronicity (Primary Dx) Start: 02-17-2022 End: 02-17-2022 Subsequent hospital visit by physician Op Xray 2 [facility] Comment on above: Right ankle pain, un specified chronicity; Closed displaced comminuted fracture of shaft of left radius with routine healing, subsequent encounter Start: 09-02-2021 Letter encounter Ignacia Doshi MD Work Phone: [facility] Start: 09-02-2021 End: 09-03-2021 ambulatory IGNACIA DOSHI Facility:[facility] Start: 09-02-2021 End: 09-02-2021 Office outpatient visit 15 minutes Oneida Santos PADealflicks Work Phone: [facility] Comment on above: Closed displaced com minuted fracture of shaft of left radius with routine healing, subsequent encounter (Primary Dx) Start: 09-02-2021 End: 09-02-2021 Office outpatient visit 10 minutes Jose MENDOZA-hike Work Phone: [facility] Comment on above: Right ankle pain, un specified chronicity (Primary Dx) Start: 09-01-2021 Letter encounter Ignacia Doshi MD Work Phone: [facility] Procedures Date Procedure Procedure Detail Performing Clinician Start: 02-17-2022 End: 02-17-2022 Radex forearm 2 views Oneida MENDOZA -hike Work Phone: Start: 03-01-2021 Antibody screen Comment on above: Result Comment: PERF ORMED BY: [facility] [address] [place] [address] PATHOLOGIST APARTMENT LOCATOR CHERYLE BUI M.D. Plan of Treatment Date Care Activity Detail Author Start: 03-01-2031 Tetanus vaccination [facility] Start: 07-26-2026 Cholesterol [Mass/volume] in Serum or Plasma Cholesterol [facility] Start: 07-07-2022 End: 07-07-2022 Patient encounter procedure 07/07/2022 Office Visit Orthopedics Ignacia Doshi MD [address] [place] [address] [facility] Start: 06-26-2022 End: 06-26-2022 Admission to same day surgery center 06/26/2022 Surgery General Surgery Ignacia Doshi MD [address] [place] [id number] REMOVAL, HARDWARE, ANKLE [facility] Comment on above: REMOVAL, HARDWARE, A NKLE Start: 06-26-2022 End: 06-26-2022 REMOVAL, HARDWARE, ANKLE REMOVAL, HARDWARE, ANKLE Routine scheduled Type III open displaced trimalleolar fracture of right ankle, initial encounter 06/26/2022 1:25 PM EST [facility] Start: 06-26-2022 Subsequent hospital visit by physician 06/26/2022 Hospital Encounter General Surgery Ignacia Doshi MD [address] [place] [address] [facility] [place] Start: 06-12-2022 End: 06-12-2022 Patient encounter procedure 06/12/2022 Office Visit Presurgical Evaluation Zoey Corrales, SHOE [employer]S MOLDER-SUBSTATION OPERATOR APPRENTICE [address] [place] [address] [facility] Pre Surgical Evaluation Start: 03-10-2022 End: 03-10-2022 Patient encounter procedure [facility] Start: 03-05-2022 End: 09-02-2022 Radex forearm 2 views XR FOREARM LEFT 2 VIEWS Imaging After office visit Closed displaced comminuted fracture of shaft of left radius with routine healing, subsequent encounter Expected: 03/05/2022 (Approximate), Expires: 09/02/2022 [email or web address] Work Phone: Comment on above: Expected: 03/05/2022 (Approximate), Expires: 09/02/2022 Start: 03-03-2022 Basic metabolic 2000 panel - Serum or Plasma Basic Metabolic Panel [facility] Start: 01-31-2022 Influenza vaccination Influenza Vacc ine (#1) [facility] Start: 12-02-2021 End: 12-02-2021 Patient encounter procedure 12/02/2021 Office Visit Orthopedics Ignacia Doshi MD [address] [place], [place] [id number] [facility] Start: 09-02-2021 End: 09-02-2021 Patient encounter procedure [facility] Comment on above: Right ankle pain, un specified chronicity (Primary Dx) Start: 02-04-2016 Measurement of occul t blood in single stool specimen [facility] Start: 02-04-2016 Screening for malignant neoplasm of [facility] Start: 02-04-2016 Screening for malignant neoplasm of colon CRC Screening [facility] Start: 02-04-2016 Shingles (RZV) Vacci ne (1 of 2) Shingles (RZV) Vaccine (1 of 2) [facility] Start: 2011 Cholesterol [Mass/volume] in Serum or Plasma Cholesterol [facility] Start: 2011 Screening for malignant neoplasm [facility] Start: 2006 Screening for malignant neoplasm of breast [facility] Start: 1987 Screening for malignant neoplasm of cervix Pap [facility]ear [facility] Start: 02-04-1984 Hepatitis C screening Hepatitis C An tibody [facility] Start: 1981 HIV screening HIV Test [facility] Start: 1971 COVID-19 Vaccine (1) COVID-19 Vaccin e (1) [facility] Start: 1966 COVID-19 Vaccine (#1) COVID-19 Vacci ne (#1) [facility] Start: 1966 Screening for malignant neoplasm of colon Colonoscopy [facility] REMOVAL, HARDWARE, ANKLE REMOVAL, HARDWARE, ANKLE Routine scheduled Type III open displaced trimalleolar fracture of right ankle, initial encounter [facility] Immunizations Immunization Date Immunization Notes Care Provider Fa cility 03-01-2021 tetanus toxoid, redu jennifer diphtheria toxoid, and acellular pertussis vaccine, adsorbed Ignacia Doshi MD Work Phone: [facility] 04-08-2012 tetanus toxoid, redu jennifer diphtheria toxoid, and acellular pertussis vaccine, adsorbed Ignacia Doshi MD Work Phone: [facility] 04-06-2012 hepatitis B vaccine, adult dosage Ignacia Doshi MD Work Phone: [facility] Payers Date Payer Category Payer Medicaid [id number] 2022 Medicaid [id number] 2020 Medicaid [id number] 2020 Medicaid [id number] 1965 Unknown [id number] [id number]. [id number] 1966 Unknown [id number] 2.16. [id number] 1966 Unknown [id number] 2.16. [id number] 1966 Unknown [id number] 2.16. [id number] 1966 Unknown [id number] 2.16. [id number] 1965 Unknown [id number] 2.16. [id number] 1965 Unknown [id number] 2.16. [id number] 1966 Unknown [id number] 2.16. [id number] 1965 Unknown [id number] Social History Date Type Detail Facility Start: 03-02-2021 Tobacco smoking status FLIS Ex-smoke r [facility] End: 03-02-2009 History of tobacco use [facility] End: 03-02-2009 History of tobacco use Cig[facility] Start: 03-02-2021 Cigarettes smoked cu rrent (pack per day) - Reported 0.25 [facility] Start: 03-02-2021 Tobacco use and exposure Forme r smokeless tobacco user [facility] Start: 1965 Sex Assigned At Not on file [facility] Medical Equipment Procedure Code Equipment Code Equipment Origin al Text Equipment Identifier Dates Plate 3.5mm 8hol e 97mm Ea1 241.381 - [id number] Start: 03-02-2021 Screw 3.5 X 45mm Self-Tapping Ea1 204.845 - [id number] Start: 03-02-2021 History of Present illness Narrative 02-17-2022 Ignacia Doshi MD - 02/17/2022 2:33 PM Dasia Russo RN - 02/17/2022 10:00 AM EDT Note Date & Type Note Facility 02-17-2022 History of Presen t illness Narrative Images from the original note were not included. [facility] Orthopaedic Trauma / Adult Reconstruction Follow up [...] Follow up imaging: none Ignacia Doshi MD [facility] Department of Orthopaedic Surgery - Trauma / Adult Reconstruction Patient was identified by name and date of . Dasia Gonzalez RN Patient at risk for falls:No Falls Risk protocol implemented: No documented in this encounter [facility] History of Present illness Narrative 09-02-2021 Jose Keita PA-C - 09/02/2021 6:29 PM Dasia Russo RN - 09/02/2021 10:48 AM EDT Note Date & Type Note Facility 09-02-2021 History of Presen t illness Narrative [facility] Orthopaedic Trauma/Adult Reconstruction 09/02/21 Orthopaedic Surgery Clinic Note HPI: Kasandra Parkinson ([id number]) is a 56 year old female who [...] protocol implemented: No documented in this encounter [facility] History of Present illness Narrative 09-02-2021 Oneida [...] healing, subsequent encounter documented in this encounter [facility] Evaluation note Note Date & Type Note Facility Evaluation note Diagnosis Type III open displaced trimalleolar fracture of right ankle, initial encounter- Primary documented in this encounter [facility] Summary Purpose Family History No Family History [...] FOREARM LEFT 2 VIEWS Oneida Santos PA-C [address] [place] [address] [facility] DIAGNOSTIC RADIOLOGY [address] [place] [address] [place] [address] Referral ID Status Reason Start Date Expiration Date V isits Requested Visits Authorized [id number] Authorized 03/05/2022 09/02/2022 1 1 Specialty Diagnoses / Procedures Referred By Contac t Referred To Contact Radiology Diagnoses Right ankle pain, unspecified chronicity Procedures XR ANKLE RIGHT 3 VIEWS Ignacia Doshi MD [address] [place] [address] [facility] DIAGNOSTIC RADIOLOGY [address] [place] [address] [place] [address] Referral ID Status Reason Start Date Expiration Date Visits Re quested Visits Authorized [id number] Closed 09/02/2021 08/26/2022 1 1 Referral ID Status Reason Start Date Expiration Date Visits Re quested Visits Authorized [id number] Closed 02/17/2022 02/17/2023 1 1 Referral ID Status Reason Start Date Expiration Date Visits Re quested Visits Authorized [id number] Closed 03/05/2022 09/02/2022 1 1 Additional Source Comments INFORMATION SOURCE (unrecogn ized section and content) DATE CREATED AUTHOR 09/24/2018 [facility] DATE CREATED AUTHOR AUTHOR'S ORGANIZ ATION 05/27/2021 [facility] DATE CREATED AUTHOR AUTHOR'S ORGANIZ ATION 06/18/2022 [facility] DATE CREATED AUTHOR AUTHOR'S ORGANIZ ATION 08/23/2022 [facility] DATE CREATED AUTHOR AUTHOR'S ORGANIZ ATION 02/27/2023 [facility] Care Teams (unrecognized sec tion and content) Artistic Director Relationship Specialty Start Date End Date Ignacia Doshi MD [address] [place] [id number] Physician Orthopaedic Surgery 05/03/21 Nosdanika, Jose De Jesusi, OTR/L [address] [place] [address] [place] [address] Occupational Therapist Occupational Therapy 05/03/21 Artistic Director Relationship Specialty Start Date End Date Ignacia Doshi MD [address] [place] [address] Physician Orthopaedic Surgery 05/03/21 NosJose De Jesus garnicai, OTR/L [address] [place] [address] [place] [address] Occupational Therapist Occupational Therapy 05/03/21 Artistic Director Relationship Specialty Start Date End Date Ignacia Doshi MD [address] [place] [address] Physician Orthopaedic Surgery 05/03/21 NosJose De Jesus garnicai, OTR/L [address] [place] [address] [place] [address] Occupational Therapist Occupational Therapy 05/03/21 Artistic Director Relationship Specialty Start Date End Date Ignacia Doshi MD [address] [place] [address] Physician Orthopaedic Surgery 05/03/21 Nosin, Cori, OTR/L [address] [place] [address] [place] [address] Occupational Therapist Occupational Therapy 05/03/21 Artistic Director Relationship Specialty Start Date End Date Ignacia Doshi MD [address] [place] [address] Physician Orthopaedic Surgery 05/03/21 Nosin, Cori, OTR/L [address] [place] [address] [place] [id number] Occupational Therapist Occupational Therapy 05/03/21 Artistic Director Relationship Specialty Start Date End Date Ignacia Doshi MD [address] [place] [address] Physician Orthopaedic Surgery 05/03/21 Nosin, Cori, OTR/L [address] [place] [address] [place] [address] Occupational Therapist Occupational Therapy 05/03/21 Artistic Director Relationship Specialty Start Date End Date Ignacia Doshi MD [address] [place], [place] [id number] Physician Orthopaedic Surgery 05/03/21 Nosin, Cori, OTR/L [address] [place] [address] [place] [address] Occupational Therapist Occupational Therapy 05/03/21 Reason for Visit (unrecogniz ed section and content) Reason Comments Monitoring/follow-up Reason Comments Post Op Check Specialty Diagnoses / Procedures Referred By Contac t Referred To Contact Radiology Diagnoses Right ankle pain, unspecified chronicity Procedures XR ANKLE RIGHT 3 VIEWS Ignacia Doshi MD [address] [place], [place] [id number] S DIAGNOSTIC RADIOLOGY [address] [place] [address] [place] [address] Referral ID Status Reason Start Date Expiration Date Visits Re quested Visits Authorized [id number] Closed 02/17/2022 02/17/2023 1 1 FOR RECORDS [...] BE BASED ON THE PRIMARY CLINICAL RECORDS. [employer] [facility]. provides no warranty or guarantee of the accuracy or completeness of information in this document.
[2023-06-24] MEDS: LIDOCAINE HCL/EPINEPHRINE 10 ML, SODIUM BICARBONATE 1 MEQ INJ (11:00)
[2023-06-24] MEDS: LIDOCAINE HCL 10 ML, SODIUM BICARBONATE 1 MEQ INJ (11:00)
--- NOTE | 2023-06-24 12:54 | SUR.PREOP ---
06/17/23 Instructed pt on procedure, date, time, and prep.
== END 2023-06-24 11:20 | disposition home or self-care (01) ==
LOC: US 09:52
PROVIDERS: Radiology Diagnostic Radiology; PCP Family Medicine; Visit Provider Family Medicine
DX: D24.2 Benign neoplasm of left breast (principal); N62 Hypertrophy of breast
CPT/HCPCS: 19083; 77065; 88305

== ENCOUNTER 2023-08-05 10:28 | Outpatient (OUT) | payer MEDICAID, SELFPAY ==
[2023-08-05 11:03] LABS: Estimated Average Glucose 120 mg/dL; Glycohemoglobin A1C 5.8 % (4.5-6.2)
[2023-08-05 11:04] LABS: Basophils Absolute Auto 0.1 10^3/uL (0.0-0.1); Basophils Percent Auto 1.2 % (0.2-2.0); Eosinophils Absolute Auto 0.2 10^3/uL (0.0-0.7); Hematocrit 43.8 % (36.0-48.0); Hemoglobin 13.9 g/dL (12.0-16.0); Immature Granulocytes Abs Auto 0.05 10^3/uL (0.00-0.03); Immature Granulocytes Pct Auto 0.7 % (0.0-0.5); Lymphocytes Absolute Auto 2.1 10^3/uL (1.2-3.8); Lymphocytes Percent Auto 28.3 % (20.5-60.0); Mean Corpuscular HGB Conc 31.7 g/dL (29.9-35.2); Mean Corpuscular Volume 94.6 fL (81.0-99.0); Mean Platelet Volume 10.6 fL (9.5-13.5); Monocytes Absolute Auto 0.7 10^3/uL (0.3-0.8); Neutrophils Absolute Auto 4.3 10^3/uL (1.4-6.5); Neutrophils Percent Auto 57.8 % (43.0-75.0); Platelet Count 319 10^3/uL (150-450); Red Blood Count 4.63 10^6/uL (4.20-5.40); Red Cell Distribution Width 13.3 % (11.0-15.0); White Blood Count 7.4 10^3/uL (4.0-11.0)
[2023-08-05 11:33] LABS: Alanine Aminotransferase 27 U/L (14-59); Albumin Globulin Ratio 1.1; Albumin Level 3.9 g/dL (3.4-5.0); Alkaline Phosphatase 143 U/L (46-116); Aspartate Amino Transferase 16 U/L (15-37); BUN Creatinine Ratio 24.5; Bilirubin Total 0.4 mg/dL (0.2-1.0); Calcium 9.4 mg/dL (8.5-10.1); Carbon Dioxide 28.4 mmol/L (21.0-32.0); Chloride 104 mmol/L (98-107); Chol HDL Ratio 2.5; Cholesterol 202 mg/dL (<=200); Estimated GFR (African America >60 (>=60); Estimated GFR (Non-African Ame >60 (>=60); Free T3 2.08 pg/mL (2.18-3.98); Globulin 3.6 g/dL; Glucose 105 mg/dL (74-106); HDL Cholesterol 82 mg/dL (40-60); Potassium 4.4 mmol/L (3.5-5.1); Sodium 141 mmol/L (136-145); Thyroid Stimulating Hormone 1.616 uIU/mL (0.358-3.740); Total Protein 7.5 g/dL (6.4-8.2); Triglycerides 71 mg/dL (<=150); VLDL CHOLESTEROL 14.2 mg/dL
[2023-08-06 10:09] LABS: Insulin 23.8 uIU/mL (2.6-24.9)
== END 2023-08-05 10:29 | disposition home or self-care (01) ==
LOC: LAB 10:29
PROVIDERS: PCP Family Medicine; Visit Provider Family Medicine
DX: Z00.00 Encounter for general adult medical examination without abnormal findings (principal); E78.5 Hyperlipidemia, unspecified; R73.9 Hyperglycemia, unspecified; D64.9 Anemia, unspecified
CPT/HCPCS: 36415; 80053; 80061; 83036; 83525; 83540; 84436; 84443; 84481; 85025

== ENCOUNTER 2024-09-11 11:04 | Outpatient (OUT) | payer MEDICAID, SELFPAY ==
--- OUTSIDE RECORDS SUMMARY | 2024-09-11 11:25 | XMS_ITS | CCD ---
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 Comment on above: Result Comment: INTE RPRETIVE INFORMATION: IGF 1 Z-SCORE CALCULATION A Z score is the number of standard deviations a given result is above (positive score) or below (negative score) the age- and sex-adjusted population mean. Results that are within the IGF-1 reference interval will have a Z score between -2.0 and +2.0. Performed by [facility], [address] [place] [address] [email or web address], Rolando Graves MD - Lab. Director Growth Hormoneon 09-16-2018 Growth Hormone 0.06 ng/mL Normal 0.05-8.00 [facility] Comment on above: Result Comment: Perf ormed by [facility], [address],[place] [id number] [email or web address], Rolando Graves MD - Lab. Director Basic Metabolic Panelon 08-31 Anion gap molar conc 13 mmol/L Normal 9-15 [facility] Comment on above: Performed By: #### B MP #### [facility] [address] [place] [address] Calcium mass conc 9.4 mg/dL Normal 8.5-9.9 [facility] Comment on above: Performed By: #### B MP #### [facility] [address] [place] [address] Chloride molar conc 100 mmol/L Normal 95-107 [facility] Comment on above: Performed By: #### B MP #### [facility] [address] [place] [address] CO2 molar conc 26 mmol/L Normal 20-31 [facility] Comment on above: Performed By: #### B MP #### [facility] [address] [place] [address] Creatinine mass conc 0.83 mg/dL Normal 0.50-0.90 [facility] Comment on above: Performed By: #### B MP #### [facility] [address] [place] [address] GFR/1.73 sq M predicted among blacks MDRD vol rate/area (S/P/Bld) mL/min/{1.73_m2} Normal >60 [facility] Comment on above: Result Comment: >60 mL/min/1.73m2 EGFR, calc. for ages 18 and older using the MDRD formula (not corrected for weight), is valid for stable renal function. Performed By: #### B MP #### [facility] [address] [place] [address] GFR/1.73 sq M.predicted MDRD vol rate/area mL/min/{1.73_m2} Normal >60 [facility] Comment on above: Result Comment: >60 mL/min/1.73m2 EGFR, calc. for ages 18 and older using the MDRD formula (not corrected for weight), is valid for stable renal function. Performed By: #### B MP #### [facility] [address] [place] [address] Glucose mass conc 93 mg/dL Normal 70-99 [facility] Comment on above: Performed By: #### B MP #### [facility] [address] [place] [address] Potassium molar conc 3.7 mmol/L Normal 3.4-4.9 [facility] Comment on above: Performed By: #### B MP #### [facility] [address] [place] [address] Sodium molar conc 139 mmol/L Normal 135-144 [facility] Comment on above: Performed By: #### B MP #### [facility] [address] [place] [address] Urea nitrogen mass conc 15 mg/dL Normal 6-20 [facility] Comment on above: Performed By: #### B MP #### [facility] [address] [place] [address] CBC With Platelet No Differe ntialon 09-14-2018 Erythrocyte distribution width Ratio (RBC) 13.9 % Normal 11.5-14.5 [facility] Comment on above: Performed By: #### C BCND #### [facility] [address] [place] [address] Hematocrit Volume Fraction (Bld) 39.0 % Normal 37.0-47.0 [facility] Comment on above: Performed By: #### C BCND #### [facility] [address] [place] [address] Hemoglobin mass conc (Bld) 12.9 g/dL Normal 12.0-16.0 [facility] Comment on above: Performed By: #### C BCND #### [facility] [address] [place] [address] MCH Entitic mass (RBC) 31.4 pg Critically high 27.0-31. 3 [facility] Comment on above: Performed By: #### C BCND #### [facility] [address] [place] [address] MCHC mass conc (RBC) 33.0 % Normal 33.0-37.0 [facility] Comment on above: Performed By: #### C BCND #### [facility] [address] [place] [address] MCV Entitic volume (RBC) 95.3 fL Normal 82.0-100.0 [facility] Comment on above: Performed By: #### C BCND #### [facility] [address] [place] [address] Platelets #/vol (Bld) 304 10*3/uL Normal 130-400 [facility] Comment on above: Performed By: #### C BCND #### [facility] [address] [place] [address] RBC #/vol (Bld) 4.09 10*6/uL Low 4.20-5.40 [facility] Comment on above: Performed By: #### C BCND #### [facility] [address] [place] [address] WBC #/vol (Bld) 8.1 10*3/uL Normal 4.8-10.8 [facility] Comment on above: Performed By: #### C BCND #### [facility] [address] [place] [address] Cortisolon 09-14-2018 Cortisol 9.9 ug/dL Normal [facility] Comment on above: Result Comment: Refe rence Ranges: AM Specimen 6.2-19.4 ug/dL PM Specimen 2.3-11.9 ug/dL Performed By: #### C ORT #### [facility] [address] [place] [address] Prolactinon 09-14-2018 Protein mass conc 40.2 ng/mL Normal [facility] Comment on above: Result Comment: Defa ult Normal Ranges Female Male Non: 4.8-23.3 4.0-15.2 Performed By: #### P ROOPA #### [facility] [address] [place] [address] TSH w/out Reflexon 9 Thyrotropin Qn 2.230 uIU/mL Normal 0.440-3.86 [facility] Comment on above: Performed By: #### T SH #### [facility] [address] [place] [address] Thyroxine Freeon 09-14-2018 Thyroxine Free 0.82 ng/dL Low 0.84-1.68 [facility] Comment on above: Performed By: #### F RT4 #### [facility] [address] [place] [address] Encounters Encounter Date Encounter Type Care Provider Facility Start: 05-13-2024 End: 05-13-2024 Letter encounter Ignacia Doshi MD Work Phone: [facility] Start: 02-06-2024 End: 02-06-2024 Letter encounter Ignacia Doshi MD Work Phone: [facility] Start: 06-24-2023 End: 06-24-2023 ambulatory Ruth Villanueva Facility:[facility] Start: 06-24-2023 End: 06-24-2023 ambulatory MD Ruth Villanueva Work Phone: [facility] Work Phone: Start: 06-24-2023 End: 06-24-2023 Departed Referred MD Ruth Villanueva Work Phone: [facility] Start: 08-23-2022 Encounter for genera l adult medical examination without abnormal findings DR RUTH VILLANUEVA . [facility] Start: 08-17-2022 End: 08-18-[address] RUTH VILLANUEVA . Facility: Start: 08-17-2022 End: 08-18-2022 Encounter for general adult medical examination without abnormal findings DR RUTH VILLANUEVA . Facility: Start: 08-10-2022 Letter encounter Ignacia [facility]oshi MD [facility] Start: 05-12-2022 Letter encounter Ignacia Doshi MD [facility] Start: 03-18-2022 ambulatory IGNACIA DOSHI [facility] Start: 02-26-2022 Admission to [facility] Jose Keita PA-C Work Phone: [facility] Orthoped[facility] Start: 02-17-2022 Letter encounter Ignacia Doshi MD Work Phone: [facility] Start: 02-17-2022 End: 02-18-2022 ambulatory UNKNOWN PROVIDER Facility:[facility] Start: 02-17-2022 End: 02-17-2022 Office outpatient visit 15 minutes Ignacia Doshi MD Work Phone: [facility] Comment on above: Right ankle pain, un specified chronicity (Primary Dx) Start: 02-17-2022 End: 02-17-2022 Subsequent hospital visit by physician Op Xray 2 [facility] Radiology Comment on above: Right ankle pain, un specified chronicity; Closed displaced comminuted fracture of shaft of left radius with routine healing, subsequent encounter Start: 09-02-2021 Letter encounter Ignacia Doshi MD Work Phone: [facility] Orthopedic Hand Start: 09-02-2021 End: 09-03-2021 ambulatory IGNACIA DOSHI Facility:[facility] Start: 09-02-2021 End: 09-02-2021 Office outpatient visit 15 minutes Oneida Santos PA-C Work Phone: [facility] Orthopedic Hand Comment on above: Closed displaced com minuted fracture of shaft of left radius with routine healing, subsequent encounter (Primary Dx) Start: 09-02-2021 End: 09-02-2021 Office outpatient visit 10 minutes Jose Keita PA-C Work Phone: [facility] Comment on above: Right ankle pain, un specified chronicity (Primary Dx) Start: 09-01-2021 Letter encounter Ignacia Doshi MD Work Phone: [facility] Procedures Date Procedure Procedure Detail Performing Clinician Start: 02-17-2022 End: 02-17-2022 Radex forearm 2 views Oneida Iniguez Work Phone: Plan of Treatment Date Care Activity Detail Author Start: 03-01-2031 Tetanus vaccination [facility] Start: 07-26-2026 Cholesterol [Mass/volume] in Serum or Plasma [facility] Start: 07-26-2026 Lipid panel Cholesterol [facility] Start: 01-02-2024 COVID-19 Vaccine () COVID-19 Vaccine () [facility] Start: 01-02-2024 COVID-19 Vaccine ( season) COVID-19 Vaccine () [facility] Start: 01-02-2024 Influenza vaccination Influenza Vacc ine (#1) [facility] Start: 07-07-2022 End: 07-07-2022 Patient encounter procedure 07/07/2022 Office Visit Orthopedics Ignacia Doshi MD [address] [place] [address] [facility] Start: 06-26-2022 End: 06-26-2022 Admission to same day surgery center 06/26/2022 Surgery General Surgery Ignacia Doshi MD [address] [place] [address] REMOVAL, HARDWARE, ANKLE [facility] Main OR Comment on above: REMOVAL, HARDWARE, A NKLE Start: 06-26-2022 End: 06-26-2022 REMOVAL, HARDWARE, ANKLE REMOVAL, HARDWARE, ANKLE Routine scheduled Type III open displaced trimalleolar fracture of right ankle, initial encounter 06/26/2022 1:25 PM EST [facility] Start: 06-26-2022 Subsequent hospital visit by physician 06/26/2022 Hospital Encounter General Surgery Ignacia Doshi MD [address] [place] [address] [facility] Start: 06-12-2022 End: 06-12-2022 Patient encounter procedure 06/12/2022 Office Visit Presurgical Evaluation Zoey Corrales, PATHOLOGY TECHNICIAN-POLICE INSPECTOR [address] [place] [address] [facility] Pre Surgical Evaluation Start: 03-10-2022 End: 03-10-2022 Patient encounter procedure [facility] Start: 03-05-2022 End: 09-02-2022 Radex forearm 2 views XR FOREARM LEFT 2 VIEWS Imaging After office visit Closed displaced comminuted fracture of shaft of left radius with routine healing, subsequent encounter Expected: 03/05/2022 (Approximate), Expires: 09/02/2022 [facility] Work Phone: Comment on above: Expected: 03/05/2022 (Approximate), Expires: 09/02/2022 Start: 03-03-2022 Basic metabolic 2000 panel - Serum or Plasma Basic Metabolic Panel [facility] Start: 03-03-2022 Creatinine measurement Basic Metabol ic Panel [facility] Start: 01-31-2022 Influenza vaccination Influenza Vacc ine (#1) [facility] Start: 12-02-2021 End: 12-02-2021 Patient encounter procedure 12/02/2021 Office Visit Orthopedics Ignacia Doshi MD [address] [place] [address] [facility] Start: 09-02-2021 End: 09-02-2021 [facility] Comment on above: Right ankle pain, un specified chronicity (Primary Dx) Start: 02-04-2016 Measurement of occul t blood in single stool specimen FIT [facility] Start: 02-04-2016 Pneumococcal vaccination Pneumococcal Vaccine(s) (50+ yrs) (1 of 1 - PCV) [facility] Start: 02-04-2016 Screening for malignant neoplasm of breast Mammography [facility] Start: 02-04-2016 Screening for malignant neoplasm of colon CRC Screening [facility] Start: 02-04-2016 Shingles (RZV) Vacci ne (1 of 2) Shingles (RZV) Vaccine (1 of 2) [facility] Start: 05-04-2012 Hepatitis B vaccination Hepatitis B (HBV) Vaccine (2 of 3 - 19+ 3-dose series) [facility] Start: 2011 Cholesterol [Mass/volume] in Serum or Plasma Cholesterol [facility] Start: 2011 Screening for malignant neoplasm of colon [facility] Start: 2006 Screening for malignant neoplasm of breast Mammography [facility] Start: 1987 Screening for malignant neoplasm of cervix Pap Smear [facility] Start: 1985 Hepatitis A (HAV) Vaccine (optional start 19+ years) Hepatitis A (HAV) Vaccine (optional start 19+ years) [facility] Start: 02-04-1984 Hepatitis C screening Hepatitis C An tibody [facility] Start: 1981 HIV screening HIV Test [facility] Start: 1971 COVID-19 Vaccine (1) COVID-19 Vaccin e (1) [facility] Start: 1966 COVID-19 Vaccine (#1) COVID-19 Vacci ne (#1) [facility] Start: 1966 Screening for malignant neoplasm of colon Colonoscopy [facility] REMOVAL, HARDWARE, ANKLE REMOVAL, HARDWARE, ANKLE Routine scheduled Type III open displaced trimalleolar fracture of right ankle, initial encounter [facility] Immunizations Immunization Date Immunization Notes Care Provider [facility] 03-01-2021 tetanus toxoid, redu jennifer diphtheria toxoid, and acellular pertussis vaccine, adsorbed Ignacia Doshi MD Work Phone: [facility] 04-08-2012 tetanus toxoid, redu jennifer diphtheria toxoid, and acellular pertussis vaccine, adsorbed Ignacia Doshi MD Work Phone: [facility] 04-06-2012 hepatitis B vaccine, adult dosage Ignacia Doshi MD Work Phone: [facility] Payers Date Payer Category Payer Self-pay [id number] 2022 Medicaid [id number] 2022 Medicaid [id number] 2022 Medicaid (Managed Care) ROSA VAZQUEZ [id number] 2020 Medicaid [id number] 2020 Medicaid [id number] 1966 Unknown [id number] 732 1966 Unknown [id number] [id number]. 732 1966 Unknown [id number] [id number]. 732 1966 Unknown [id number] [id number]. 732 1966 Unknown [id number] [id number]. 732 1966 Unknown [id number] [id number]. 732 1966 Unknown [id number] [id number]. 732 1966 Unknown [id number] [id number]. 732 1966 Unknown [id number] [id number]. 593 Unknown Regular Auto/Liability [id number] Unknown [id number] 531 Social History Date Type Detail Facility [facility]: [facility]02[facility] Start: 03-02-2008 End: 03-02-2009 History of tobacco use Current smoker [facility] Start: 03-02-2008 End: 03-02-2009 History of tobacco use Cigarette Smoker [facility] Start: 03-02-2021 End: 02-17-2022 Cigarettes smoked current (pack per day) - Reported 0.25 [facility] Start: 03-02-2021 Tobacco use and exposure Former smokeless tobacco user [facility] Start: 1965 [facility]igned At [facility] Start: 1965 Sex Assigned At Female F [facility] Start: 02-17-2022 Tobacco use panel [facility] Start: 03-01-2021 Sex Female (finding) Carolyn morejonh Work Phone: Medical Equipment Procedure Code Equipment Code Equipment Origin al Text Equipment Identifier Dates Plate 3.5mm 8hol e 97mm Ea1 241.381 - [id number] Start: 03-02-2021 Screw 3.5 X 45mm Self-Tapping Ea1 204.845 - [id number] Start: 03-02-2021 Plate 3.5mm 8hol e 111mm Ea1 223.581 - [id number] Start: 03-02-2021 Screw Nadia Part Thd 3.5x65mm Ea1 [id number] - [id number] Start: 03-02-2021 Screw Nadia Full Thd 3.5x70mm Ea1 [id number] - [id number] Start: 03-02-2021 Screw 3.5 X 14mm Self-Tapping Ea1 204.814 - [id number] Start: 03-02-2021 Screw 3.5 X 12mm Self-Tapping Ea1 212.102 - [id number] Start: 03-02-2021 Screw 3.5 X 14mm Self-Tapping Ea1 212.103 - [id number] Start: 03-02-2021 Screw 3.5 X 12mm Self-Tapping Ea1 204.812 - [id number] Start: 03-02-2021 History of Present illness Narrative 02-17-2022 Ignacia Doshi MD - 02/17/2022 2:33 PM Dasia Russo RN - 02/17/2022 10:00 AM EDT Note Date & Type Note Facility 02-17-2022 History of Presen t illness Narrative Images from the original note were not included. [facility] Orthopaedic Trauma / Adult Reconstruction Follow [...] Follow up imaging: none Ignacia Doshi MD [facility] Department of Orthopaedic Surgery - Trauma / Adult Reconstruction Patient was identified by name and date of . Dasia Gonzalez RN Patient at risk for falls:No Falls Risk protocol implemented: No documented in this encounter [facility] History of Present illness Narrative 09-02-2021 Jose Keita PA-Latoya - 09/02/2021 6:29 PM EDTLDasia lennon RN - 09/02/2021 10:48 AM EDT Note Date & Type Note Facility 09-02-2021 History of Presen t illness Narrative [facility] Orthopaedic Trauma/Adult Reconstruction 09/02/21 Orthopaedic Surgery Clinic Note HPI: Kasandra Parkinson ([id number]) is a 56 year old female who [...] In office procedures performed: none Assessment/Plan: 1. (M25.305) Right ankle pain, unspecified chronicity The natural [...] protocol implemented: No documented in this encounter [facility] History of Present illness Narrative [...] initial encounter- Primary documented in this encounter [facility] Evaluation note Note Date & Type Note Facility Evaluation note No assessment information availa [facility] Work Phone: Summary Purpose Family History No Family History Records FoundNo Family History Records FoundNo Family History Records FoundNo Family History Records FoundNo Family History Records Found Advance Directives Latest Code Status on File Code Status [...] the code status chosen by the patient/surrogate. Advance Directive Response Recorded Date/ Time Advance Directives No March 01, 2021 8:21pm Date Activated Date Inactivated Comments 03/02/2021 6:58 AM 03/04/2021 6:50 PM Question Answer Comments Documentation of decision pr ocess for this code status: Discussed with patient or surrogate. This is the code status chosen by the patient/surrogate. Reason for Referral Specialty Diagnoses / Procedures Referred By Contac t Referred To Contact Radiology Diagnoses Closed displaced comminuted fracture of shaft of left radius with routine healing, subsequent encounter Procedures XR FOREARM LEFT 2 VIEWS Oneida Santos PA-C [address] [place] [address] [facility] DIAGNOSTIC RADIOLOGY [address] [place] [address] [place] [address] Referral ID Status Reason Start Date Expiration Date V isits Requested Visits Authorized [id number] Authorized 03/05/2022 09/02/2022 1 1 Specialty Diagnoses / Procedures Referred By Samantha vega Referred To Contact Radiology Diagnoses Right ankle pain, unspecified chronicity Procedures XR ANKLE RIGHT 3 VIEWS Ignacia Doshi MD [address] [place] [address] [facility] DIAGNOSTIC RADIOLOGY [address] [place] [address] [place] [address] Referral ID Status Reason Start Date Expiration Date Visits Re quested Visits Authorized [id number] Closed 09/02/2021 08/26/2022 1 1 Referral ID Status Reason Start Date Expiration Date Visits Re quested Visits Authorized [id number] Closed 02/17/2022 02/17/2023 1 1 Referral ID Status Reason Start Date Expiration Date Visits Re quested Visits Authorized [id number] Closed 03/05/2022 09/02/2022 1 1 Additional Source Comments INFORMATION SOURCE (unrecogn ized section and content) DATE CREATED AUTHOR 09/24/2018 [facility] DATE CREATED AUTHOR AUTHOR'S ORGANIZ ATION 06/18/2022 [facility] DATE CREATED AUTHOR AUTHOR'S ORGANIZ ATION 08/23/2022 [facility] DATE CREATED AUTHOR AUTHOR'S ORGANIZ ATION 02/27/2023 Clement Christophe [facility] DATE CREATED AUTHOR AUTHOR'S ORGANIZ ATION 07/02/2023 [facility] Care Teams (unrecognized sec tion and content) Health Science Instructor Relationship Specialty Start Date End Date Ignacia Doshi MD [address] [place] [id number] Physician Orthopaedic Surgery 05/03/21 Nosin, Cori, OTR/L [address] [place] [address] [place] [address] Occupational Therapist Occupational Therapy 05/03/21 Health Science Instructor Relationship Specialty Start Date End Date Ignacia Doshi MD [address] [place] [address]45 Physician Orthopaedic Surgery 05/03/21 Nosin, Cori, OTR/L [address] [place] [address] [place] [address] Occupational Therapist Occupational Therapy 05/03/21 Health Science Instructor Relationship Specialty Start Date End Date Ignacia Doshi MD [address] [place] [address] 17943 Physician Orthopaedic Surgery 05/03/21 Nosin, Cori, OTR/L [address] [place] [address] [place] [address] Occupational Therapist Occupational Therapy 05/03/21 Health Science Instructor Relationship Specialty Start Date End Date Ignacia Doshi MD [address] [place] [address] 08251 Physician Orthopaedic Surgery 05/03/21 Nosin, Cori, OTR/L [address] [place] [address] [place] [address] Occupational Therapist Occupational Therapy 05/03/21 Health Science Instructor Relationship Specialty Start Date End Date Ignacia Doshi MD [address] [place] [address] 33479 Physician Orthopaedic Surgery 05/03/21 Nosin, Cori, OTR/L [address] [place] [address] [place] [address] Occupational Therapist Occupational Therapy 05/03/21 Health Science Instructor Relationship Specialty Start Date End Date Ignacia Doshi MD [address] [place] [address] 13769 Physician Orthopaedic Surgery 05/03/21 NosJose De Jesus garnicai, OTR/L [address] [place] [address] [address] [id number] Occupational Therapist Occupational Therapy 05/03/21 Health Science Instructor Relationship Specialty Start Date End Date Ignacia Doshi MD [address] [place] [address] 91481 Physician Orthopaedic Surgery 05/03/21 Rose Lamar, OTR/L [address] [place] [address] Dr [place] [id number] Occupational Therapist Occupational Therapy 05/03/21 Team Status: Active Member Role Status Dates Ruth Villanueva MD Primary Care Provider Active Team Status: Inactive Member Role Status Dates Ruth Villanueva MD Primary Care Provider Active Start: June 24, 2023 End: June 24, 2023 Keanu Garner MD Attending Provider Active Start: June 24, 2023 End: June 24, 2023 Health Science Instructor Relationship Specialty Start Date End Date Ignacia Doshi MD [address] [place], [place] [phone] Physician Orthopaedic Surgery 05/03/21 Rose Lamar, OTR/L [address] [place] [address] [place] [address] Occupational Therapist Occupational Therapy 05/03/21 Health Science Instructor Relationship Specialty Start Date End Date Ignacia Doshi MD [address] [place] [address] 16824 Physician Orthopaedic Surgery 05/03/21 Rose Oleary, MS, OTR/L [address] [place] [address] [place] [address] Occupational Therapist Occupational Therapy 05/03/21 Reason for Visit (unrecogniz ed section and content) Reason Comments Monitoring/follow-up Reason Comments Post Op Check Specialty Diagnoses / Procedures Referred By Contac t Referred To Contact Radiology Diagnoses Right ankle pain, unspecified chronicity Procedures XR ANKLE RIGHT 3 VIEWS Ignacia Doshi MD [address] [id number] [facility] DI[facility]STIC [facility]OLOG[facility] [address] [id number] Referral ID Status Reason Start Date Expiration Date Visits Re quested Visits Authorized [id number] Closed 02/17/2022 02/17/2023 1 1 Goals (unrecognized section and content) Goals may be documented in a n alternate section FOR RECORDS PERTAINING TO PATIENTS WHO ARE [...] BE BASED ON THE PRIMARY CLINICAL RECORDS. [facility]. provides no warranty or guarantee of the accuracy or completeness of information in this document.
[2024-09-11 11:36] LABS: Estimated Average Glucose 128 mg/dL; Glycohemoglobin A1C 6.1 % (4.5-6.2)
[2024-09-11 11:40] LABS: Basophils Absolute Auto 0.1 10^3/uL (0.0-0.1); Basophils Percent Auto 1.1 % (0.2-2.0); Eosinophils Absolute Auto 0.2 10^3/uL (0.0-0.7); Eosinophils Percent Auto 2.6 % (0.9-7.0); Hematocrit 40.7 % (36.0-48.0); Hemoglobin 13.5 g/dL (12.0-16.0); Immature Granulocytes Abs Auto 0.04 10^3/uL (0.00-0.03); Immature Granulocytes Pct Auto 0.5 % (0.0-0.5); Lymphocytes Percent Auto 27.3 % (20.5-60.0); Mean Corpuscular HGB Conc 33.2 g/dL (29.9-35.2); Mean Corpuscular Hemoglobin 30.8 pg (26.7-34.0); Mean Corpuscular Volume 92.9 fL (81.0-99.0); Mean Platelet Volume 11.2 fL (9.5-13.5); Monocytes Absolute Auto 0.8 10^3/uL (0.3-0.8); Monocytes Percent Auto 10.2 % (1.7-12.0); Neutrophils Absolute Auto 4.3 10^3/uL (1.4-6.5); Neutrophils Percent Auto 58.3 % (43.0-75.0); Platelet Count 263 10^3/uL (150-450); Red Blood Count 4.38 10^6/uL (4.20-5.40); Red Cell Distribution Width 13.4 % (11.0-15.0); White Blood Count 7.4 10^3/uL (4.0-11.0)
[2024-09-11 12:35] LABS: Alanine Aminotransferase 31 U/L (14-59); Albumin Level 3.5 g/dL (3.4-5.0); Alkaline Phosphatase 127 U/L (46-116); Anion Gap 10.7; Aspartate Amino Transferase 18 U/L (15-37); Bilirubin Total 0.4 mg/dL (0.2-1.0); Carbon Dioxide 28.5 mmol/L (21.0-32.0); Chloride 104 mmol/L (98-107); Chol HDL Ratio 2.2; Cholesterol 167 mg/dL (<=200); Estimated GFR (African America >60 (>=60 mL/min/1.73m^2); Estimated GFR (Non-African Ame 50 (>=60 mL/min/1.73m^2); Free T3 1.04 pg/mL (2.18-3.98); Globulin 3.4 g/dL; Glucose 98 mg/dL (74-106); HDL Cholesterol 77 mg/dL (40-60); Potassium 4.2 mmol/L (3.5-5.1); Sodium 139 mmol/L (136-145); Thyroid Stimulating Hormone 2.658 uIU/mL (0.358-3.740); Total Protein 6.9 g/dL (6.4-8.2); Triglycerides 78 mg/dL (<=150); VLDL CHOLESTEROL 15.6 mg/dL
== END 2024-09-11 11:05 | disposition home or self-care (01) ==
LOC: LAB 11:07
PROVIDERS: PCP Family Medicine; Visit Provider Family Medicine
DX: Z00.00 Encounter for general adult medical examination without abnormal findings (principal)
CPT/HCPCS: 36415; 80053; 80061; 83036; 84436; 84443; 84481; 85025

== ENCOUNTER 2024-09-18 12:38 | Outpatient (OUT) | payer MEDICAID, SELFPAY ==
--- NOTE | 2024-09-18 | MM_ITS ---
Patient Name: KASANDRA HARKINS MR#: [id number] : 1965 Exam Date: 09/18/2024 Ordering Doctor: DR RUTH IRAHETA . RADIOLOGY REPORT PROCEDURE: MM TOMOSYNTHESIS SCREENING BI COMPARISON: US BREAST LT LIMITED, 06/17/2023. MM POST BIOPSY LT, 06/24/2023. MM DIAGNOSTIC MAMMO UNILAT LT, 06/17/2023. MM TOMOSYNTHESIS SCREENING BI, 06/07/2023. MG MAMM ADAM SCRN W CAD DIG, 07/17/2013. INDICATIONS: Screening for malignant neoplasm Calculator Name NCI Breast Cancer Risk Assessment Tool 5 Year Breast Cancer Risk 1.60% Lifetime Breast Cancer Risk 9.10% Personal Breast Cancer No Personal Ovarian Cancer No Treatments None Family Cancers None LOCATION: [facility] BREAST COMPOSITION: There are scattered areas of fibroglandular density. FINDINGS: RIGHT BREAST: No significant suspicious finding. Similar focal asymmetries are present. Benign-appearing calcifications are redemonstrated. Benign appearing lymph nodes are noted along the chest wall. LEFT BREAST: No significant suspicious finding. Similar focal asymmetries are present with benign-appearing calcifications. Benign-appearing lymph nodes in the along the chest wall . DIAGNOSTIC CATEGORY 2--BENIGN FINDING: RECOMMENDATIONS: ROUTINE MAMMOGRAM AND CLINICAL EVALUATION IN 12 MONTHS. PLEASE NOTE: A NORMAL MAMMOGRAM DOES NOT EXCLUDE THE POSSIBILITY OF BREAST CANCER. A CLINICALLY SUSPICIOUS PALPABLE LUMP SHOULD BE BIOPSIED. Dictated by: Sanford Parker MD on 09/18/2024 at 16:52 Approved by: Sanford Parker MD on 09/18/2024 at 17:00
== END 2024-09-18 12:39 | disposition home or self-care (01) ==
LOC: MAMMO 12:38
PROVIDERS: PCP Family Medicine; Visit Provider Family Medicine
DX: Z12.31 Encounter for screening mammogram for malignant neoplasm of breast (principal)
CPT/HCPCS: 77063; 77067

== ENCOUNTER 2024-09-21 12:14 | Outpatient (OUT) | payer MEDICAID, SELFPAY ==
--- NOTE | 2024-09-21 12:17 | MR_ITS ---
The [address] [address] Patient Name: KASANDRA HARKINS MRN: [id number] date: 1965 Sex: F Assigned Patient Location: MRI Current Patient Location: MRI Accession/Order Number: [id number] Exam Date: 09/21/2024 15:02 Report Date: 09/21/2024 15:09 At the request of: RUTH IRAHETA MD Procedure: MR pituitary wo/w con MR pituitary wo/w con 09/21/2024 12:18 PM SIGN AND SYMPTOMS: ^pituitary mass, follow-up PROTOCOL: Multiplanar multisequence MR images of the brain with and without IV contrast CONTRAST: 17 mL of intravenous dotarem COMPARISON: 07/13/2018 FINDINGS: Extra axial spaces: Age appropriate. Hemorrhage: None. Ventricular system: Within normal limits. Basal cisterns: Within normal limits and not effaced. Cerebral parenchyma: T2 and FLAIR hyperintense signal is noted in the periventricular and subcortical white matter. Midline shift: None.. Cerebellum: Within normal limits. Brainstem: Within normal limits. OTHER: Calvarium: Normal marrow signal. Vascular system: Satisfactory flow voids within the anterior and posterior circulation. Visualized Paranasal sinuses: Mucosal thickening is noted in the maxillary sinuses. Visualized Orbits: Within normal limits. Visualized upper cervical spine: Within normal limits. 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 This measures 3.5 x 3.2 x 2.8 cm in greatest dimension. This appears to invade the cavernous sinus on the right partially encasing the right internal carotid arteries in its cavernous and ophthalmic segments. There are cystic changes within the dome lesion similar to the prior study. There is mass effect on the optic chiasm. This appears more extensive when compared to the prior exam. There is mild upward displacement of the mamillary bodies. This is slightly worse when compared to the prior exam. 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 This measures 3.5 x 3.2 x 2.8 cm in greatest dimension. This appears to invade the cavernous sinus on the right partially encasing the right internal carotid arteries in its cavernous and ophthalmic segments. This is worse when compared to the prior exam. There is mass effect on the optic chiasm. This appears more extensive when compared to the prior exam. There is mild upward displacement of the mamillary bodies. This is slightly worse when compared to the prior exam. 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 Impression dictated by: Sanford Parker M.D. 09/21/2024 3:09 PM Dictation Location: [place] [address] Electronically authenticated by: [id number] Y Date: 09/21/2024 15:09
== END 2024-09-21 12:15 | disposition home or self-care (01) ==
LOC: MRI 12:14
PROVIDERS: PCP Family Medicine; Visit Provider Family Medicine
DX: Z00.00 Encounter for general adult medical examination without abnormal findings (principal); E23.7 Disorder of pituitary gland, unspecified
CPT/HCPCS: 70553; A9575